=== PATIENT | female | born 1965 | race Two or more races ===

== ENCOUNTER 2023-06-18 01:23 | Inpatient (IN) | payer MEDICAID, OTHER ==
[2023-06-18] VITALS (62 sets, daily range): BP systolic 71–133; BP diastolic 38–85; PULSE 48–104; RESP 14–25; TEMP 99.9–103.3; O2SAT 77–100
[~2023-06-18] VITALS: Ht 165.1 cm; Wt 71.3 kg
[2023-06-18] MEDS ORDERED: PROPOFOL 100 ML IV ONE (01:42)
[2023-06-18] MEDS: PROPOFOL 100 ML IV SCH ×2 (01:45→20:04)
[2023-06-18] MEDS ORDERED: SUCCINYLCHOLINE CHLORIDE 20 MG/ML 10ML VIAL IV ONE (01:45)
[2023-06-18] MEDS ORDERED: ETOMIDATE (2MG/ML) 20ML VIAL IV ONE (01:45)
[2023-06-18 01:50] LABS: Basophils # (auto) 0.1 10 ^3/uL (0-0.2); Basophils % (auto) 0.7 % (0.0-2.0); Eosinophils # (auto) 0.1 10 ^3/uL (0-0.8); Eosinophils % (auto) 0.6 % (0.0-7.0); Hematocrit 36.1 % (36.0-46.0); Hemoglobin 11.2 g/dL (12.2-16.2); Lymphocytes # (auto) 5.9 10 ^3/uL (0.4-5.4); Lymphocytes % (auto) 43.2 % (10.0-50.0); Mean Corpuscular Hemoglobin 29.5 pg (28.0-32.0); Mean Corpuscular Volume 95.2 fL (80.0-100.0); Monocytes # (auto) 0.8 10 ^3/uL (0-1.3); Monocytes % (auto) 6.1 % (0.0-12.0); Neutrophils # (auto) 6.8 10 ^3/uL (1.6-8.6); Neutrophils % (auto) 49.4 % (37.0-80.0); Nucleated Red Blood Cells % 0.1 %; Red Blood Cells 3.79 10^6/uL (4.0-5.20); Red Cell Distribution Width 13.7 % (11.8-14.3); White Blood Cell 13.7 10^3/uL (4.4-10.8)
[2023-06-18 02:07] LABS: Alanine Aminotransferase 376 U/L (7-40); Albumin 3.5 g/dL (3.2-4.8); Alkaline Phosphatase 106 U/L (46-116); Anion Gap 14 (5-15); Aspartate Aminotransferase 429 U/L (13-40); BUN/Creatinine Ratio 8.5 (10.0-20.0); Bilirubin, Total 0.7 mg/dL (0.2-1.0); Blood Alcohol < 3.0 mg/dL (<10); Blood Urea Nitrogen 10 mg/dL (9-23); Calcium 8.1 mg/dL (8.7-10.4); Carbon Dioxide 17 mmol/L (20-30); Chloride 106 mmol/L (98-107); Glucose 312 mg/dL (74-106); Potassium 4.3 mmol/L (3.5-5.1); Sodium 137 mmol/L (136-145)
[2023-06-18 02:08] LABS: Total Protein 5.8 g/dL (5.7-8.2)
[2023-06-18] MEDS ORDERED: NOREPINEPHRINE 8 MG/250ML KIT 250 ML IV ONE (02:12)
[2023-06-18] MEDS: NOREPINEPHRINE 8 MG/250ML KIT 250 ML IV SCH ×3 (02:15→20:12)
[2023-06-18 02:23] LABS: Base Excess -11.6 mmol/L (-2.0-2.0)
[2023-06-18] MEDS ORDERED: NOREPINEPHRINE 8 MG/250ML KIT 250 ML IV SCH (02:30)
[2023-06-18] MEDS ORDERED: cefTRIAXone 1GM/50ML D5W 50 ML IV ONE (03:00)
[2023-06-18] MEDS ORDERED: AZITHROMYCIN 500MG/ 250ML 250 ML IV ONE (03:00)
[2023-06-18] MEDS ORDERED: fentaNYL Drip 2500mCg/250mlNS 250 ML IV ONE (03:29)
[2023-06-18] MEDS: fentaNYL Drip 2500mCg/250mlNS 250 ML IV SCH (03:30)
[2023-06-18 04:01] LABS: Urine Amorphous Crystal FEW /hpf (None Seen); Urine Bacteria FEW /hpf (None Seen); Urine Blood 3+ /uL (Negative); Urine Clarity HAZY (Clear); Urine Color Yellow (Yellow); Urine Mucus FEW (None Seen); Urine Protein, UAD 2+ (Negative); Urine Specific Gravity 1.019 (1.001-1.035); Urine WBC 16 /hpf (0 - 5); Urine WBC Clumps PRESENT /hpf (None Seen)
[2023-06-18 04:15] LABS: Amphetamine Screen, Urine Neg (NEGATIVE); Barbiturate Scree,Urine Neg (NEGATIVE); Benzodiazephine Screen, Urine Neg (NEGATIVE); Cannabinoid Screen, Urine Neg (NEGATIVE); Cocaine Screen, Urine Neg (NEGATIVE); Opiate Scree,Urine Neg (NEGATIVE); Phencyclidine Screen, Urine Neg (NEGATIVE)
[2023-06-18 04:25] LABS: COVID19 ANTIGEN SOFIA FIA NEGATIVE (NEGATIVE); Rapid Influenza A Negative (Negative); Rapid Influenza B Negative (Negative)
[2023-06-18] MEDS ORDERED: EPINEPHrine HCL 250 ML IV SCH (04:45)
[2023-06-18] MEDS ORDERED: ONDANSETRON HCL 4 MG/2 ML VIAL IV PRN (06:00)
[2023-06-18] MEDS ORDERED: ENOXAPARIN SOD 100 MG/1 ML SYRINGE SC ONE (06:00)
[2023-06-18] MEDS: SODIUM CHLORIDE 0.9% 1,000 ML IV SCH ×3 (06:00→22:27)
[2023-06-18] MEDS ORDERED: MORPHINE SULFATE INJ 2 MG/ml SYRG IV PRN ×2 (06:00→11:15)
[2023-06-18] MEDS ORDERED: NITROGLYCERIN 0.4 MG SL TAB SL PRN (06:00)
[2023-06-18] MEDS ORDERED: ENOXAPARIN SOD 40 MG/0.4 ML SYRINGE SC SCH (10:00)
[2023-06-18] MEDS ORDERED: ENOXAPARIN SOD 80 MG/0.8ML SYRINGE SC SCH (11:15)
[2023-06-18] MEDS ORDERED: ASPirin 325 MG TAB PO ONE (11:15)
[2023-06-18] MEDS ORDERED: SODIUM CHLORIDE 0.9% 1,000 ML IV SCH (12:15)
[2023-06-18] MEDS ORDERED: AMIODARONE BOLUS KIT 100 ML IV ONE (12:15)
[2023-06-18] MEDS ORDERED: AMIODARONE 450mg/250ml AE 250 ML IV SCH (12:30)
[2023-06-18] MEDS ORDERED: CLOPIDOGREL 300 MG TAB PO ONE (12:30)
[2023-06-18] MEDS ORDERED: SODIUM CHL 0.9% 50 ML ONE ×2 (12:43→12:45)
[2023-06-18] MEDS ORDERED: ANGIOMAX 250 MG VIAL IV ONE (12:43)
[2023-06-18] MEDS ORDERED: VERAPAMIL 2.5MG/ML INJ 2ML VIAL IV ONE (12:43)
[2023-06-18] MEDS ORDERED: HEPARIN SODIUM (PORCINE) 5000 UNITS/ML 1ML VIAL ONE (12:43)
[2023-06-18] MEDS ORDERED: LIDOCAINE 2%HCL (LOCAL ANESTH.) INJ 20ML MDV ONE (12:44)
[2023-06-18] MEDS: ALBUTEROL MEDNEB 2.5 mg/3ml NEB NEB SCH ×3 (12:44→22:12)
[2023-06-18] MEDS ORDERED: IODIXANOL 320MG/ML 100ML BTL IV ONE ×3 (12:44→14:21)
[2023-06-18] MEDS: IPRATROPIUM BROM 0.5 MG/2.5ML INH SOL NEB SCH ×4 (12:45→22:12)
[2023-06-18 12:58] LABS: Erythrocyte Sedimentation Rate 12 mm/hr (0-20)
[2023-06-18] MEDS ORDERED: EPINEPHrine HCL 1 MG/10 ML SYRG ONE (13:20)
[2023-06-18] MEDS ORDERED: ATROPINE SULF 1 MG/10ml SYR ONE (13:20)
[2023-06-18] MEDS ORDERED: fentaNYL CITRATE 100 MCG/2 ML VL ONE (14:00)
[2023-06-18] MEDS: PIPERACILLIN-TAZOB 3.375GM 100 ML IV SCH ×2 (14:00→22:28)
[2023-06-18] MEDS ORDERED: MIDAZOLAM HCL 2MG/2ML 2ml VIAL (1mg/ml) ONE (14:01)
[2023-06-18] MEDS ORDERED: OPTISON 3ml Vial for INJ IV ONE (17:10)
[2023-06-18] MEDS ORDERED: EPINEPHrine HCL 250 ML IV ONE (17:32)
[2023-06-18] MEDS: EPINEPHrine HCL 250 ML IV SCH (17:42)
[2023-06-18] MEDS: AMIODARONE 450mg/250ml AE 250 ML IV SCH (18:30)
[2023-06-19] VITALS (107 sets, daily range): BP systolic 86–166; BP diastolic 49–86; PULSE 57–118; RESP 8–20; TEMP 99.3–100.6; O2SAT 88–100
[2023-06-19] MEDS: AMIODARONE 450mg/250ml AE 250 ML IV SCH ×3 (00:19→21:07)
[2023-06-19] MEDS: IPRATROPIUM BROM 0.5 MG/2.5ML INH SOL NEB SCH ×4 (02:23→18:57)
[2023-06-19] MEDS: ALBUTEROL MEDNEB 2.5 mg/3ml NEB NEB SCH ×3 (02:23→18:57)
[2023-06-19 04:25] LABS: Basophils # (auto) 0 10 ^3/uL (0-0.2); Basophils % (auto) 0.3 % (0.0-2.0); Eosinophils # (auto) 0.1 10 ^3/uL (0-0.8); Eosinophils % (auto) 0.6 % (0.0-7.0); Hematocrit 31.3 % (36.0-46.0); Hemoglobin 10.5 g/dL (12.2-16.2); Lymphocytes # (auto) 2.6 10 ^3/uL (0.4-5.4); Lymphocytes % (auto) 19.9 % (10.0-50.0); Mean Corpuscular Hemoglobin 30.3 pg (28.0-32.0); Mean Corpuscular Hgb Conc. 33.5 g/dL (32.0-36.0); Mean Corpuscular Volume 90.5 fL (80.0-100.0); Monocytes # (auto) 1.2 10 ^3/uL (0-1.3); Monocytes % (auto) 9.4 % (0.0-12.0); Neutrophils # (auto) 9.1 10 ^3/uL (1.6-8.6); Neutrophils % (auto) 69.8 % (37.0-80.0); Red Blood Cells 3.46 10^6/uL (4.0-5.20); Red Cell Distribution Width 13.1 % (11.8-14.3)
[2023-06-19 04:39] LABS: Alanine Aminotransferase 336 U/L (7-40); Albumin 3.3 g/dL (3.2-4.8); Alkaline Phosphatase 99 U/L (46-116); Anion Gap 8 (5-15); Aspartate Aminotransferase 273 U/L (13-40); BUN/Creatinine Ratio 9.9 (10.0-20.0); Bilirubin, Total 1.3 mg/dL (0.2-1.0); Blood Urea Nitrogen 11 mg/dL (9-23); Calcium 7.8 mg/dL (8.7-10.4); Carbon Dioxide 22 mmol/L (20-30); Chloride 104 mmol/L (98-107); Glucose 170 mg/dL (74-106); Potassium 3.5 mmol/L (3.5-5.1); Sodium 134 mmol/L (136-145); Total Protein 5.8 g/dL (5.7-8.2)
[2023-06-19] MEDS: PIPERACILLIN-TAZOB 3.375GM 100 ML IV SCH ×3 (05:42→22:33)
[2023-06-19 08:47] LABS: Base Excess -6.3 mmol/L (-2.0-2.0)
[2023-06-19] MEDS ORDERED: cefTRIAXone 1GM/50ML D5W 50 ML IV SCH (09:00)
[2023-06-19] MEDS: AZITHROMYCIN 500MG/ 250ML 250 ML IV SCH ×2 (10:00→10:07)
[2023-06-19] MEDS: CLOPIDOGREL BISULFATE 75 MG TAB PO SCH (10:00)
[2023-06-19] MEDS ORDERED: METOCLOPRAMIDE HCL 5MG/ml INJ 2ml VIAL IV ONE (10:15)
[2023-06-19 11:23] LABS: Magnesium 1.8 mg/dL (1.6-2.6)
[2023-06-19] MEDS ORDERED: MAGNESIUM SULFATE 1GM/100ML 100 ML IV ONE (15:00)
[2023-06-19] MEDS: PROPOFOL 100 ML IV SCH (16:57)
[2023-06-19] MEDS: POTASSIUM CHL 20MEQ/100ML 100 ML IV SCH ×2 (17:00→17:04)
[2023-06-19] MEDS: fentaNYL Drip 2500mCg/250mlNS 250 ML IV SCH (17:03)
[2023-06-19] MEDS: EPINEPHrine HCL 250 ML IV SCH (17:15)
[2023-06-19] MEDS: SODIUM CHLORIDE 0.9% 1,000 ML IV SCH (22:00)
[2023-06-19] MEDS: AMIODARONE HCL 200 MG TAB GT SCH (22:33)
[2023-06-20] VITALS (105 sets, daily range): BP systolic 77–165; BP diastolic 41–85; PULSE 68–113; RESP 6–25; TEMP 97.7–102.2; O2SAT 90–100
[2023-06-20] MEDS: IPRATROPIUM BROM 0.5 MG/2.5ML INH SOL NEB SCH ×3 (00:21→19:04)
[2023-06-20] MEDS: ALBUTEROL MEDNEB 2.5 mg/3ml NEB NEB SCH ×3 (00:21→19:04)
[2023-06-20] MEDS: NOREPINEPHRINE 8 MG/250ML KIT 250 ML IV SCH (02:15)
[2023-06-20 04:13] LABS: Basophils # (auto) 0 10 ^3/uL (0-0.2); Basophils % (auto) 0.2 % (0.0-2.0); Eosinophils # (auto) 0.1 10 ^3/uL (0-0.8); Eosinophils % (auto) 0.5 % (0.0-7.0); Hematocrit 27.1 % (36.0-46.0); Hemoglobin 8.9 g/dL (12.2-16.2); Lymphocytes # (auto) 1.4 10 ^3/uL (0.4-5.4); Lymphocytes % (auto) 10.7 % (10.0-50.0); Mean Corpuscular Hemoglobin 29.3 pg (28.0-32.0); Mean Corpuscular Hgb Conc. 32.8 g/dL (32.0-36.0); Mean Corpuscular Volume 89.3 fL (80.0-100.0); Monocytes # (auto) 1.3 10 ^3/uL (0-1.3); Monocytes % (auto) 9.4 % (0.0-12.0); Neutrophils # (auto) 10.6 10 ^3/uL (1.6-8.6); Neutrophils % (auto) 79.2 % (37.0-80.0); Red Blood Cells 3.03 10^6/uL (4.0-5.20); Red Cell Distribution Width 13.1 % (11.8-14.3); White Blood Cell 13.4 10^3/uL (4.4-10.8)
[2023-06-20 04:22] LABS: Chloride 104 mmol/L (98-107); Potassium 3.8 mmol/L (3.5-5.1); Sodium 132 mmol/L (136-145)
[2023-06-20 04:23] LABS: Anion Gap 6 (5-15); Calcium 8.1 mg/dL (8.7-10.4); Carbon Dioxide 22 mmol/L (20-30)
[2023-06-20 04:28] LABS: Blood Urea Nitrogen 9 mg/dL (9-23); Glucose 138 mg/dL (74-106)
[2023-06-20 04:29] LABS: Magnesium 1.9 mg/dL (1.6-2.6)
[2023-06-20] MEDS: PIPERACILLIN-TAZOB 3.375GM 100 ML IV SCH ×3 (05:46→21:13)
[2023-06-20 08:18] LABS: Base Excess -4.5 mmol/L (-2.0-2.0)
[2023-06-20] MEDS ORDERED: POTASSIUM CHL 20MEQ/100ML 100 ML IV ONE (09:15)
[2023-06-20] MEDS: FUROSEMIDE 20 MG/2 ML VIAL IV SCH (09:56)
[2023-06-20] MEDS: MAGNESIUM OXIDE 400 MG TAB PO SCH (09:57)
[2023-06-20] MEDS: AMIODARONE HCL 200 MG TAB GT SCH ×2 (09:57→21:12)
[2023-06-20] MEDS: CLOPIDOGREL BISULFATE 75 MG TAB PO SCH (09:57)
[2023-06-20] MEDS: D5W/SOD CHLO 0.9% 1,000 ML IV SCH ×2 (10:04→22:35)
[2023-06-20] MEDS: EMPAGLIFLOZIN 10 MG TAB GT SCH (10:12)
[2023-06-20] MEDS: ONDANSETRON HCL 4 MG/2 ML VIAL IV PRN (11:03)
[2023-06-20] MEDS: METOCLOPRAMIDE HCL 5MG/ml INJ 2ml VIAL IV SCH ×2 (15:50→21:12)
[2023-06-20] MEDS: EPINEPHrine HCL 250 ML IV SCH (17:15)
[2023-06-20] MEDS: PROPOFOL 100 ML IV SCH (19:44)
[2023-06-20] MEDS ORDERED: ACETAMINOPHEN 325 MG TAB PO ONE (19:45)
[2023-06-20] MEDS: fentaNYL Drip 2500mCg/250mlNS 250 ML IV SCH (19:52)
[2023-06-21] VITALS (107 sets, daily range): BP systolic 88–180; BP diastolic 42–115; PULSE 78–108; RESP 10–25; TEMP 97.2–99.5; O2SAT 89–100
[2023-06-21] MEDS: ALBUTEROL MEDNEB 2.5 mg/3ml NEB NEB SCH ×4 (00:14→18:30)
[2023-06-21] MEDS: IPRATROPIUM BROM 0.5 MG/2.5ML INH SOL NEB SCH ×4 (00:15→18:30)
[2023-06-21] MEDS: NOREPINEPHRINE 8 MG/250ML KIT 250 ML IV SCH (02:15)
[2023-06-21 04:11] LABS: Basophils # (auto) 0.1 10 ^3/uL (0-0.2); Basophils % (auto) 0.6 % (0.0-2.0); Eosinophils # (auto) 0.1 10 ^3/uL (0-0.8); Eosinophils % (auto) 0.9 % (0.0-7.0); Hematocrit 27.3 % (36.0-46.0); Hemoglobin 8.9 g/dL (12.2-16.2); Lymphocytes # (auto) 1.7 10 ^3/uL (0.4-5.4); Lymphocytes % (auto) 13.7 % (10.0-50.0); Mean Corpuscular Hemoglobin 29.1 pg (28.0-32.0); Mean Corpuscular Hgb Conc. 32.5 g/dL (32.0-36.0); Mean Corpuscular Volume 89.5 fL (80.0-100.0); Monocytes # (auto) 1.4 10 ^3/uL (0-1.3); Monocytes % (auto) 10.9 % (0.0-12.0); Neutrophils # (auto) 9.3 10 ^3/uL (1.6-8.6); Neutrophils % (auto) 73.9 % (37.0-80.0); Nucleated Red Blood Cells % 0.1 %; Red Blood Cells 3.05 10^6/uL (4.0-5.20); White Blood Cell 12.6 10^3/uL (4.4-10.8)
[2023-06-21 04:39] LABS: Alanine Aminotransferase 195 U/L (7-40); Albumin 3.6 g/dL (3.2-4.8); Alkaline Phosphatase 91 U/L (46-116); Anion Gap 7 (5-15); Blood Urea Nitrogen 8 mg/dL (9-23); Calcium 8.4 mg/dL (8.7-10.4); Carbon Dioxide 25 mmol/L (20-30); Chloride 103 mmol/L (98-107); Glucose 118 mg/dL (74-106); Magnesium 1.8 mg/dL (1.6-2.6); Potassium 3.5 mmol/L (3.5-5.1); Sodium 135 mmol/L (136-145)
[2023-06-21 04:40] LABS: Aspartate Aminotransferase 89 U/L (13-40); Bilirubin, Total 0.9 mg/dL (0.2-1.0); Total Protein 6.1 g/dL (5.7-8.2)
[2023-06-21] MEDS: PROPOFOL 100 ML IV SCH ×2 (04:54→17:57)
[2023-06-21] MEDS: PIPERACILLIN-TAZOB 3.375GM 100 ML IV SCH ×3 (06:24→22:02)
[2023-06-21] MEDS: METOCLOPRAMIDE HCL 5MG/ml INJ 2ml VIAL IV SCH ×3 (06:24→22:03)
[2023-06-21] MEDS: EMPAGLIFLOZIN 10 MG TAB GT SCH (06:24)
[2023-06-21] MEDS ORDERED: Jevity 1.2 Cal/Fiber 1 Liter GT SCH (08:15)
[2023-06-21] MEDS: CLOPIDOGREL BISULFATE 75 MG TAB PO SCH (10:41)
[2023-06-21] MEDS: FUROSEMIDE 20 MG/2 ML VIAL IV SCH (10:41)
[2023-06-21] MEDS: POTASSIUM CHL 20MEQ/100ML 100 ML IV SCH ×2 (10:41→11:51)
[2023-06-21] MEDS: AMIODARONE HCL 200 MG TAB GT SCH ×2 (10:41→22:03)
[2023-06-21] MEDS: MAGNESIUM OXIDE 400 MG TAB PO SCH (10:41)
[2023-06-21] MEDS: AZITHROMYCIN 500MG/ 250ML 250 ML IV SCH (11:01)
[2023-06-21] MEDS: ONDANSETRON HCL 4 MG/2 ML VIAL IV PRN (11:31)
[2023-06-21] MEDS: D5W/SOD CHLO 0.9% 1,000 ML IV SCH (13:24)
[2023-06-21 15:55] LABS: Base Excess -0.9 mmol/L (-2.0-2.0)
[2023-06-21] MEDS: EPINEPHrine HCL 250 ML IV SCH (17:15)
[2023-06-21] MEDS: fentaNYL Drip 2500mCg/250mlNS 250 ML IV SCH (23:57)
[2023-06-22] VITALS (101 sets, daily range): BP systolic 69–156; BP diastolic 46–111; PULSE 68–124; RESP 8–40; TEMP 36; O2SAT 83–100
[2023-06-22] MEDS: ALBUTEROL MEDNEB 2.5 mg/3ml NEB NEB SCH ×4 (00:03→18:41)
[2023-06-22] MEDS: IPRATROPIUM BROM 0.5 MG/2.5ML INH SOL NEB SCH ×4 (00:03→18:41)
[2023-06-22] MEDS: NOREPINEPHRINE 8 MG/250ML KIT 250 ML IV SCH (02:15)
[2023-06-22 03:53] LABS: Chloride 106 mmol/L (98-107); Potassium 3.1 mmol/L (3.5-5.1); Sodium 140 mmol/L (136-145)
[2023-06-22 03:54] LABS: Anion Gap 6 (5-15); Calcium 8.2 mg/dL (8.5-10.1); Carbon Dioxide 28 mmol/L (20-30)
[2023-06-22 03:59] LABS: BUN/Creatinine Ratio 9.3 (10.0-20.0); Blood Urea Nitrogen 7 mg/dL (9-23); Glucose 115 mg/dL (74-106)
[2023-06-22 04:34] LABS: Basophils # (auto) 0 10 ^3/uL (0-0.2); Basophils % (auto) 0.2 % (0.0-2.0); Eosinophils # (auto) 0 10 ^3/uL (0-0.8); Eosinophils % (auto) 0.5 % (0.0-7.0); Hemoglobin 7.4 g/dL (12.2-16.2); Monocytes # (auto) 1.1 10 ^3/uL (0-1.3); Neutrophils # (auto) 7.2 10 ^3/uL (1.6-8.6); White Blood Cell 9.3 10^3/uL (4.4-10.8)
[2023-06-22 04:37] LABS: Hematocrit 21.8 % (36.0-46.0); Lymphocytes % (auto) 10.6 % (10.0-50.0); Mean Corpuscular Hemoglobin 30.3 pg (28.0-32.0); Mean Corpuscular Hgb Conc. 33.8 g/dL (32.0-36.0); Mean Corpuscular Volume 89.5 fL (80.0-100.0); Monocytes % (auto) 11.4 % (0.0-12.0); Neutrophils % (auto) 77.3 % (37.0-80.0); Red Blood Cells 2.43 10^6/uL (4.0-5.20); Red Cell Distribution Width 12.6 % (11.8-14.3)
[2023-06-22] MEDS: PROPOFOL 100 ML IV SCH ×3 (05:20→23:23)
[2023-06-22] MEDS: PIPERACILLIN-TAZOB 3.375GM 100 ML IV SCH ×3 (05:28→22:00)
[2023-06-22] MEDS: D5W/SOD CHLO 0.9% 1,000 ML IV SCH ×2 (05:28→22:13)
[2023-06-22] MEDS: METOCLOPRAMIDE HCL 5MG/ml INJ 2ml VIAL IV SCH ×3 (05:29→21:59)
[2023-06-22] MEDS: EMPAGLIFLOZIN 10 MG TAB GT SCH (07:00)
[2023-06-22 07:09] LABS: Base Excess 0.6 mmol/L (-2.0-2.0)
[2023-06-22] MEDS: AMIODARONE HCL 200 MG TAB GT SCH ×2 (09:18→22:00)
[2023-06-22] MEDS: MAGNESIUM OXIDE 400 MG TAB PO SCH (09:18)
[2023-06-22] MEDS: CLOPIDOGREL BISULFATE 75 MG TAB PO SCH (09:18)
[2023-06-22] MEDS: FUROSEMIDE 20 MG/2 ML VIAL IV SCH (10:46)
[2023-06-22] MEDS: AZITHROMYCIN 500MG/ 250ML 250 ML IV SCH (11:25)
[2023-06-22] MEDS: POTASSIUM CHL 20MEQ/100ML 100 ML IV SCH ×3 (12:20→15:38)
[2023-06-22 13:43] LABS: Hematocrit 24.6 % (36.0-46.0)
[2023-06-22] MEDS: EPINEPHrine HCL 250 ML IV SCH (17:15)
[2023-06-22 18:50] LABS: Hemoglobin 7.7 g/dL (12.2-16.2)
[2023-06-22 18:52] LABS: Hematocrit 23.1 % (36.0-46.0)
[2023-06-23] VITALS (108 sets, daily range): BP systolic 84–120; BP diastolic 44–72; PULSE 66–100; RESP 12–21; TEMP 98.1–99.5; O2SAT 91–100
[2023-06-23 00:09] LABS: Hemoglobin 7.2 g/dL (12.2-16.2)
[2023-06-23] MEDS: ALBUTEROL MEDNEB 2.5 mg/3ml NEB NEB SCH ×4 (00:09→18:22)
[2023-06-23] MEDS: IPRATROPIUM BROM 0.5 MG/2.5ML INH SOL NEB SCH ×4 (00:09→18:22)
[2023-06-23 00:10] LABS: Hematocrit 21.5 % (36.0-46.0)
[2023-06-23] MEDS: NOREPINEPHRINE 8 MG/250ML KIT 250 ML IV SCH (02:15)
[2023-06-23] MEDS: PROPOFOL 100 ML IV SCH ×4 (03:37→23:51)
[2023-06-23 04:21] LABS: Basophils # (auto) 0 10 ^3/uL (0-0.2); Eosinophils # (auto) 0.3 10 ^3/uL (0-0.8)
[2023-06-23 04:23] LABS: Basophils % (auto) 0.3 % (0.0-2.0); Eosinophils % (auto) 2.7 % (0.0-7.0); Hematocrit 22.5 % (36.0-46.0); Hemoglobin 7.6 g/dL (12.2-16.2); Lymphocytes # (auto) 2.1 10 ^3/uL (0.4-5.4); Lymphocytes % (auto) 22.7 % (10.0-50.0); Mean Corpuscular Hemoglobin 30.2 pg (28.0-32.0); Mean Corpuscular Hgb Conc. 33.7 g/dL (32.0-36.0); Mean Corpuscular Volume 89.7 fL (80.0-100.0); Monocytes % (auto) 11.3 % (0.0-12.0); Neutrophils # (auto) 5.8 10 ^3/uL (1.6-8.6); Nucleated Red Blood Cells % 0.1 %; Red Cell Distribution Width 12.9 % (11.8-14.3); White Blood Cell 9.2 10^3/uL (4.4-10.8)
[2023-06-23 04:36] LABS: Alanine Aminotransferase 110 U/L (7-40); Albumin 3.3 g/dL (3.2-4.8); Alkaline Phosphatase 70 U/L (46-116); Anion Gap 7 (5-15); Aspartate Aminotransferase 64 U/L (13-40); BUN/Creatinine Ratio 12.2 (10.0-20.0); Blood Urea Nitrogen 10 mg/dL (9-23); Calcium 8.5 mg/dL (8.7-10.4); Carbon Dioxide 30 mmol/L (20-30); Chloride 105 mmol/L (98-107); Glucose 101 mg/dL (74-106); Magnesium 1.7 mg/dL (1.6-2.6); Potassium 3.2 mmol/L (3.5-5.1); Sodium 142 mmol/L (136-145)
[2023-06-23 04:37] LABS: Bilirubin, Total 0.8 mg/dL (0.2-1.0); Total Protein 5.7 g/dL (5.7-8.2)
[2023-06-23] MEDS: PIPERACILLIN-TAZOB 3.375GM 100 ML IV SCH ×3 (06:04→22:26)
[2023-06-23] MEDS: EMPAGLIFLOZIN 10 MG TAB GT SCH (06:04)
[2023-06-23] MEDS: METOCLOPRAMIDE HCL 5MG/ml INJ 2ml VIAL IV SCH ×3 (06:04→22:26)
[2023-06-23] MEDS: D5W/SOD CHLO 0.9% 1,000 ML IV SCH ×2 (06:40→17:40)
[2023-06-23] MEDS: fentaNYL Drip 2500mCg/250mlNS 250 ML IV SCH ×2 (06:41→20:03)
[2023-06-23 07:15] LABS: Base Excess -0.1 mmol/L (-2.0-2.0)
[2023-06-23] MEDS: POTASSIUM CHL 20MEQ/100ML 100 ML IV SCH ×3 (09:43→13:30)
[2023-06-23] MEDS: MAGNESIUM OXIDE 400 MG TAB PO SCH (09:44)
[2023-06-23] MEDS: FUROSEMIDE 20 MG/2 ML VIAL IV SCH (09:44)
[2023-06-23] MEDS: AMIODARONE HCL 200 MG TAB GT SCH ×2 (09:44→22:26)
[2023-06-23] MEDS: AZITHROMYCIN 500MG/ 250ML 250 ML IV SCH (10:56)
[2023-06-23 14:40] LABS: Urine Bacteria NONE SEEN /hpf (None Seen); Urine Blood 2+ /uL (Negative); Urine Clarity Clear (Clear); Urine Color Yellow (Yellow); Urine Protein, UAD TRACE (Negative); Urine Specific Gravity 1.012 (1.001-1.035); Urine Urobilinogen Normal (Negative); Urine WBC 1 /hpf (0 - 5); Urine pH 5.5 (5.0-8.0)
[2023-06-23] MEDS: EPINEPHrine HCL 250 ML IV SCH (16:49)
[2023-06-24] VITALS (109 sets, daily range): BP systolic 81–141; BP diastolic 19–84; PULSE 59–96; RESP 8–23; TEMP 97–98.5; O2SAT 87–100
[2023-06-24] MEDS: ALBUTEROL MEDNEB 2.5 mg/3ml NEB NEB SCH ×4 (00:17→18:25)
[2023-06-24] MEDS: IPRATROPIUM BROM 0.5 MG/2.5ML INH SOL NEB SCH ×4 (00:17→18:25)
[2023-06-24] MEDS: NOREPINEPHRINE 8 MG/250ML KIT 250 ML IV SCH ×2 (02:15→12:51)
[2023-06-24 04:18] LABS: Basophils # (auto) 0 10 ^3/uL (0-0.2); Basophils % (auto) 0.4 % (0.0-2.0); Eosinophils # (auto) 0.3 10 ^3/uL (0-0.8); Hemoglobin 7.5 g/dL (12.2-16.2); Lymphocytes # (auto) 1.9 10 ^3/uL (0.4-5.4)
[2023-06-24 04:20] LABS: Eosinophils % (auto) 4.3 % (0.0-7.0); Hematocrit 22.9 % (36.0-46.0); Lymphocytes % (auto) 23.9 % (10.0-50.0); Mean Corpuscular Hemoglobin 29.7 pg (28.0-32.0); Mean Corpuscular Hgb Conc. 32.7 g/dL (32.0-36.0); Mean Corpuscular Volume 90.8 fL (80.0-100.0); Monocytes # (auto) 0.9 10 ^3/uL (0-1.3); Monocytes % (auto) 11.3 % (0.0-12.0); Neutrophils # (auto) 4.8 10 ^3/uL (1.6-8.6); Neutrophils % (auto) 60.1 % (37.0-80.0); Nucleated Red Blood Cells % 0.6 %; Red Blood Cells 2.53 10^6/uL (4.0-5.20); Red Cell Distribution Width 13.3 % (11.8-14.3)
[2023-06-24 04:35] LABS: Alanine Aminotransferase 86 U/L (7-40); Albumin 3.3 g/dL (3.2-4.8); Alkaline Phosphatase 77 U/L (46-116); Anion Gap 7 (5-15); Aspartate Aminotransferase 44 U/L (13-40); Blood Urea Nitrogen 8 mg/dL (9-23); Calcium 8.4 mg/dL (8.7-10.4); Carbon Dioxide 28 mmol/L (20-30); Chloride 106 mmol/L (98-107); Glucose 92 mg/dL (74-106); Potassium 3.5 mmol/L (3.5-5.1); Sodium 141 mmol/L (136-145)
[2023-06-24 04:36] LABS: Bilirubin, Total 0.9 mg/dL (0.2-1.0); Total Protein 5.8 g/dL (5.7-8.2)
[2023-06-24] MEDS: EMPAGLIFLOZIN 10 MG TAB GT SCH (06:09)
[2023-06-24] MEDS: PIPERACILLIN-TAZOB 3.375GM 100 ML IV SCH ×3 (06:09→21:17)
[2023-06-24] MEDS: METOCLOPRAMIDE HCL 5MG/ml INJ 2ml VIAL IV SCH ×3 (06:09→21:17)
[2023-06-24] MEDS: PROPOFOL 100 ML IV SCH ×2 (08:37→20:36)
[2023-06-24] MEDS: D5W/SOD CHLO 0.9% 1,000 ML IV SCH (08:38)
[2023-06-24 08:50] LABS: Base Excess -2.5 mmol/L (-2.0-2.0)
[2023-06-24] MEDS: AZITHROMYCIN 500MG/ 250ML 250 ML IV SCH (10:33)
[2023-06-24] MEDS: AMIODARONE HCL 200 MG TAB GT SCH ×2 (10:33→21:20)
[2023-06-24] MEDS: FUROSEMIDE 20 MG/2 ML VIAL IV SCH (10:34)
[2023-06-24] MEDS: POTASSIUM CHL 20MEQ/100ML 100 ML IV SCH ×2 (10:35→11:52)
[2023-06-24] MEDS: MAGNESIUM SULFATE 1GM/100ML 100 ML IV SCH ×2 (10:35→11:45)
[2023-06-24] MEDS: MAGNESIUM OXIDE 400 MG TAB PO SCH (10:52)
[2023-06-24] MEDS ORDERED: FUROSEMIDE 20 MG/2 ML VIAL IV ONE ×2 (12:30→12:45)
[2023-06-24] MEDS: fentaNYL Drip 2500mCg/250mlNS 250 ML IV SCH (13:14)
[2023-06-24] MEDS: EPINEPHrine HCL 250 ML IV SCH (17:15)
[2023-06-25] VITALS (105 sets, daily range): BP systolic 84–149; BP diastolic 36–96; PULSE 33–113; RESP 8–22; TEMP 98.5–100; O2SAT 90–100
[2023-06-25] MEDS: PROPOFOL 100 ML IV SCH ×4 (00:24→23:46)
[2023-06-25] MEDS: D5W/SOD CHLO 0.9% 1,000 ML IV SCH (00:27)
[2023-06-25] MEDS: IPRATROPIUM BROM 0.5 MG/2.5ML INH SOL NEB SCH ×4 (00:32→18:35)
[2023-06-25] MEDS: ALBUTEROL MEDNEB 2.5 mg/3ml NEB NEB SCH ×4 (00:32→18:35)
[2023-06-25 04:16] LABS: Basophils # (auto) 0 10 ^3/uL (0-0.2); Eosinophils # (auto) 0.3 10 ^3/uL (0-0.8); Monocytes # (auto) 0.8 10 ^3/uL (0-1.3); Nucleated Red Blood Cells % 0.2 %; Red Blood Cells 2.39 10^6/uL (4.0-5.20)
[2023-06-25 04:17] LABS: Basophils % (auto) 0.5 % (0.0-2.0); Eosinophils % (auto) 4.3 % (0.0-7.0); Hematocrit 21.5 % (36.0-46.0); Hemoglobin 7.3 g/dL (12.2-16.2); Lymphocytes # (auto) 1.9 10 ^3/uL (0.4-5.4); Mean Corpuscular Hemoglobin 30.4 pg (28.0-32.0); Mean Corpuscular Hgb Conc. 33.8 g/dL (32.0-36.0); Monocytes % (auto) 11.7 % (0.0-12.0); Neutrophils # (auto) 3.8 10 ^3/uL (1.6-8.6); Neutrophils % (auto) 55.5 % (37.0-80.0); Red Cell Distribution Width 13.3 % (11.8-14.3); White Blood Cell 6.9 10^3/uL (4.4-10.8)
[2023-06-25 04:36] LABS: Alanine Aminotransferase 61 U/L (7-40); Albumin 3.1 g/dL (3.2-4.8); Alkaline Phosphatase 78 U/L (46-116); Anion Gap 7 (5-15); Aspartate Aminotransferase 32 U/L (13-40); BUN/Creatinine Ratio 9.3 (10.0-20.0); Blood Urea Nitrogen 8 mg/dL (9-23); Calcium 8.2 mg/dL (8.7-10.4); Carbon Dioxide 30 mmol/L (20-30); Chloride 104 mmol/L (98-107); Glucose 97 mg/dL (74-106); Potassium 3.1 mmol/L (3.5-5.1); Sodium 141 mmol/L (136-145); Total Protein 5.5 g/dL (5.7-8.2)
[2023-06-25] MEDS: EMPAGLIFLOZIN 10 MG TAB GT SCH (05:56)
[2023-06-25] MEDS: METOCLOPRAMIDE HCL 5MG/ml INJ 2ml VIAL IV SCH ×3 (05:56→23:00)
[2023-06-25] MEDS: PIPERACILLIN-TAZOB 3.375GM 100 ML IV SCH (05:56)
[2023-06-25] MEDS: FUROSEMIDE 20 MG/2 ML VIAL IV SCH ×2 (09:00→23:00)
[2023-06-25] MEDS: POTASSIUM CHL 20MEQ/100ML 100 ML IV SCH ×4 (09:12→20:54)
[2023-06-25] MEDS ORDERED: ATROPINE SULF 1 MG/10ml SYR IV ONE (09:30)
[2023-06-25] MEDS: fentaNYL Drip 2500mCg/250mlNS 250 ML IV SCH (09:54)
[2023-06-25] MEDS ORDERED: POTASSIUM CHL 20MEQ/100ML 100 ML IV ONE (10:00)
[2023-06-25] MEDS ORDERED: MAGNESIUM SULFATE 1GM/100ML 100 ML IV SCH (10:00)
[2023-06-25] MEDS ORDERED: MAGNESIUM SULFATE 1GM/100ML 100 ML IV ONE (10:00)
[2023-06-25] MEDS ORDERED: FUROSEMIDE 20 MG/2 ML VIAL IV SCH (10:00)
[2023-06-25] MEDS: MAGNESIUM SULFATE 1GM/100ML 100 ML IV SCH ×4 (11:13→16:15)
[2023-06-25] MEDS: ENOXAPARIN SOD 40 MG/0.4 ML SYRINGE SC SCH (12:00)
[2023-06-25] MEDS: AMIODARONE HCL 200 MG TAB GT SCH ×2 (12:00→22:00)
[2023-06-25] MEDS: MAGNESIUM OXIDE 400 MG TAB PO SCH (12:51)
[2023-06-25] MEDS ORDERED: PANTOPRAZOLE 40 MG/10 ML VIAL INJ IV ONE (13:15)
[2023-06-25] MEDS: ACETAMINOPHEN 650 mg PER 20.3 mL UD GT PRN (13:20)
[2023-06-25] MEDS: NOREPINEPHRINE 8 MG/250ML KIT 250 ML IV SCH (13:38)
[2023-06-25] MEDS ORDERED: ATROPINE SULF 1 MG/10ml SYR IM ONE (13:59)
[2023-06-25 14:52] LABS: Urine Bacteria FEW /hpf (None Seen); Urine Blood 1+ /uL (Negative); Urine Clarity Clear (Clear); Urine Color Yellow (Yellow); Urine Mucus FEW (None Seen); Urine Protein, UAD Negative (Negative); Urine Specific Gravity 1.012 (1.001-1.035); Urine Urobilinogen Normal (Negative); Urine WBC 1 /hpf (0 - 5)
[2023-06-25] MEDS: EPINEPHrine HCL 250 ML IV SCH (17:15)
[2023-06-25 18:32] LABS: Alanine Aminotransferase 57 U/L (7-40); Albumin 3.2 g/dL (3.2-4.8); Alkaline Phosphatase 81 U/L (46-116); Anion Gap 7 (5-15); Aspartate Aminotransferase 30 U/L (13-40); Blood Urea Nitrogen 7 mg/dL (9-23); Calcium 8.3 mg/dL (8.7-10.4); Carbon Dioxide 31 mmol/L (20-30); Chloride 101 mmol/L (98-107); Glucose 111 mg/dL (74-106); Potassium 3.1 mmol/L (3.5-5.1); Sodium 139 mmol/L (136-145)
[2023-06-25 18:33] LABS: Bilirubin, Total 1.2 mg/dL (0.2-1.0); Total Protein 5.8 g/dL (5.7-8.2)
[2023-06-25] MEDS ORDERED: POTASSIUM CHL 20MEQ/100ML 200 ML IV ONE (18:57)
[2023-06-25] MEDS: PANTOPRAZOLE 40 MG/10 ML VIAL INJ IV SCH (23:00)
[2023-06-26] VITALS (108 sets, daily range): BP systolic 76–137; BP diastolic 33–72; PULSE 53–112; RESP 10–25; TEMP 98.6–99.5; O2SAT 90–100
[2023-06-26] MEDS: IPRATROPIUM BROM 0.5 MG/2.5ML INH SOL NEB SCH ×4 (00:43→18:11)
[2023-06-26] MEDS: ALBUTEROL MEDNEB 2.5 mg/3ml NEB NEB SCH ×4 (00:43→18:11)
[2023-06-26 01:11] LABS: Chloride 104 mmol/L (98-107); Potassium 3.7 mmol/L (3.5-5.1); Sodium 139 mmol/L (136-145)
[2023-06-26 01:12] LABS: Anion Gap 6 (5-15); Calcium 8.1 mg/dL (8.7-10.4); Carbon Dioxide 29 mmol/L (20-30)
[2023-06-26 01:17] LABS: BUN/Creatinine Ratio 8.6 (10.0-20.0); Blood Urea Nitrogen 7 mg/dL (9-23); Glucose 93 mg/dL (74-106)
[2023-06-26] MEDS: PROPOFOL 100 ML IV SCH ×4 (05:51→19:06)
[2023-06-26] MEDS: METOCLOPRAMIDE HCL 5MG/ml INJ 2ml VIAL IV SCH ×3 (06:18→22:29)
[2023-06-26] MEDS: EMPAGLIFLOZIN 10 MG TAB GT SCH (06:19)
[2023-06-26] MEDS ORDERED: POTASSIUM CHL 20MEQ/100ML 100 ML IV ONE ×2 (09:45→23:15)
[2023-06-26 10:08] LABS: Basophils # (auto) 0.1 10 ^3/uL (0-0.2); Eosinophils # (auto) 0.3 10 ^3/uL (0-0.8); Lymphocytes # (auto) 1.9 10 ^3/uL (0.4-5.4); Nucleated Red Blood Cells % 0.2 %
[2023-06-26 10:10] LABS: Alanine Aminotransferase 57 U/L (7-40); Albumin 3.4 g/dL (3.2-4.8); Alkaline Phosphatase 84 U/L (46-116); Anion Gap 7 (5-15); Aspartate Aminotransferase 37 U/L (13-40); BUN/Creatinine Ratio 12.3 (10.0-20.0); Basophils % (auto) 0.9 % (0.0-2.0); Blood Urea Nitrogen 9 mg/dL (9-23); Calcium 8.6 mg/dL (8.5-10.1); Carbon Dioxide 30 mmol/L (20-30); Chloride 102 mmol/L (98-107); Eosinophils % (auto) 3.4 % (0.0-7.0); Glucose 79 mg/dL (74-106); Hemoglobin 7.9 g/dL (12.2-16.2); Lymphocytes % (auto) 19.2 % (10.0-50.0); Mean Corpuscular Hemoglobin 29.8 pg (28.0-32.0); Mean Corpuscular Hgb Conc. 33.1 g/dL (32.0-36.0); Monocytes # (auto) 0.7 10 ^3/uL (0-1.3); Monocytes % (auto) 7.6 % (0.0-12.0); Neutrophils # (auto) 6.7 10 ^3/uL (1.6-8.6); Neutrophils % (auto) 68.9 % (37.0-80.0); Potassium 3.5 mmol/L (3.5-5.1); Red Blood Cells 2.66 10^6/uL (4.0-5.20); Red Cell Distribution Width 13.4 % (11.8-14.3); Sodium 139 mmol/L (136-145); White Blood Cell 9.8 10^3/uL (4.4-10.8)
[2023-06-26 10:11] LABS: Bilirubin, Total 0.9 mg/dL (0.2-1.0); Total Protein 6.2 g/dL (5.7-8.2)
[2023-06-26] MEDS ORDERED: MAGNESIUM SULFATE 1GM/100ML 100 ML IV ONE (13:00)
[2023-06-26] MEDS: PANTOPRAZOLE 40 MG/10 ML VIAL INJ IV SCH ×2 (13:09→22:28)
[2023-06-26] MEDS: MAGNESIUM OXIDE 400 MG TAB PO SCH (13:10)
[2023-06-26] MEDS: ENOXAPARIN SOD 40 MG/0.4 ML SYRINGE SC SCH (13:10)
[2023-06-26] MEDS: SODIUM FERR GLUC 62.5MG/5ML 125 MG in SODIUM CHL 0.9% 100 ML IV SCH (13:17)
[2023-06-26] MEDS: POTASSIUM CHL 20MEQ/100ML 100 ML IV SCH ×3 (13:34→17:41)
[2023-06-26 13:45] LABS: INR 1.02 (0.9-1.15); Prothrombin Time 10.7 sec (9.3-11.8)
[2023-06-26] MEDS: MAGNESIUM SULFATE 1GM/100ML 100 ML IV SCH ×2 (14:42→16:13)
[2023-06-26] MEDS: FUROSEMIDE 20 MG/2 ML VIAL IV SCH (15:32)
[2023-06-26] MEDS: EPINEPHrine HCL 250 ML IV SCH (17:15)
[2023-06-26] MEDS ORDERED: LIDOCAINE 1% (LOCAL ANESTH.) PF 5ml SDV ID ONE (17:15)
[2023-06-26 21:53] LABS: Chloride 101 mmol/L (98-107); Potassium 3.7 mmol/L (3.5-5.1); Sodium 140 mmol/L (136-145)
[2023-06-26 21:54] LABS: Anion Gap 9 (5-15); Calcium 8.8 mg/dL (8.5-10.1); Carbon Dioxide 30 mmol/L (20-30)
[2023-06-26 21:59] LABS: BUN/Creatinine Ratio 9.5 (10.0-20.0); Blood Urea Nitrogen 8 mg/dL (9-23); Glucose 83 mg/dL (74-106)
[2023-06-26] MEDS: SODIUM CHLOR 0.9% PF (SALINE LOCK) 10ML VIAL/SYR IV SCH (22:28)
[2023-06-26] MEDS: fentaNYL Drip 2500mCg/250mlNS 250 ML IV SCH (23:21)
[2023-06-27] VITALS (102 sets, daily range): BP systolic 76–153; BP diastolic 39–85; PULSE 61–136; RESP 12–35; TEMP 98.2–99; O2SAT 85–100
[2023-06-27] MEDS: ALBUTEROL MEDNEB 2.5 mg/3ml NEB NEB SCH ×4 (00:05→18:20)
[2023-06-27] MEDS: IPRATROPIUM BROM 0.5 MG/2.5ML INH SOL NEB SCH ×4 (00:05→18:20)
[2023-06-27] MEDS: PROPOFOL 100 ML IV SCH ×3 (00:37→08:35)
[2023-06-27] MEDS: FUROSEMIDE 20 MG/2 ML VIAL IV SCH ×3 (01:03→18:22)
[2023-06-27] MEDS: NOREPINEPHRINE 8 MG/250ML KIT 250 ML IV SCH (01:59)
[2023-06-27 06:23] LABS: Basophils # (auto) 0.1 10 ^3/uL (0-0.2); Basophils % (auto) 1.2 % (0.0-2.0); Eosinophils # (auto) 0.3 10 ^3/uL (0-0.8); Eosinophils % (auto) 3.9 % (0.0-7.0); Hematocrit 26.2 % (36.0-46.0); Hemoglobin 8.8 g/dL (12.2-16.2); Lymphocytes # (auto) 1.8 10 ^3/uL (0.4-5.4); Lymphocytes % (auto) 23.4 % (10.0-50.0); Mean Corpuscular Hemoglobin 30.3 pg (28.0-32.0); Mean Corpuscular Hgb Conc. 33.6 g/dL (32.0-36.0); Mean Corpuscular Volume 90.3 fL (80.0-100.0); Monocytes # (auto) 0.6 10 ^3/uL (0-1.3); Monocytes % (auto) 8.4 % (0.0-12.0); Neutrophils # (auto) 4.8 10 ^3/uL (1.6-8.6); Neutrophils % (auto) 63.1 % (37.0-80.0); Nucleated Red Blood Cells % 0.3 %; Red Cell Distribution Width 13.7 % (11.8-14.3); White Blood Cell 7.6 10^3/uL (4.4-10.8)
[2023-06-27 06:26] LABS: Alanine Aminotransferase 51 U/L (7-40); Albumin 3.7 g/dL (3.2-4.8); Alkaline Phosphatase 94 U/L (46-116); Anion Gap 9 (5-15); Aspartate Aminotransferase 32 U/L (13-40); BUN/Creatinine Ratio 8.1 (10.0-20.0); Blood Urea Nitrogen 7 mg/dL (9-23); Carbon Dioxide 30 mmol/L (20-30); Chloride 100 mmol/L (98-107); Glucose 87 mg/dL (74-106); Potassium 3.6 mmol/L (3.5-5.1); Sodium 139 mmol/L (136-145)
[2023-06-27 06:27] LABS: Total Protein 6.8 g/dL (5.7-8.2)
[2023-06-27] MEDS: METOCLOPRAMIDE HCL 5MG/ml INJ 2ml VIAL IV SCH ×3 (06:46→23:09)
[2023-06-27] MEDS: EMPAGLIFLOZIN 10 MG TAB GT SCH (06:55)
[2023-06-27 07:17] LABS: Creatine Kinase IFCC 190 U/L (34-145)
[2023-06-27 08:26] LABS: Base Excess 5.8 mmol/L (-2.0-2.0)
[2023-06-27] MEDS ORDERED: MAGNESIUM SULFATE 1GM/100ML 100 ML IV ONE (09:15)
[2023-06-27] MEDS ORDERED: POTASSIUM CHL 20MEQ/100ML 100 ML IV ONE (09:15)
[2023-06-27] MEDS ORDERED: DOCUSATE SOD 100 MG CAP PO PRN (10:00)
[2023-06-27] MEDS: LACTULOSE 20Gm/30ML SOLN PO SCH ×2 (10:46→22:00)
[2023-06-27] MEDS: PANTOPRAZOLE 40 MG/10 ML VIAL INJ IV SCH ×2 (10:46→23:09)
[2023-06-27] MEDS: MAGNESIUM OXIDE 400 MG TAB PO SCH (10:46)
[2023-06-27] MEDS: ENOXAPARIN SOD 40 MG/0.4 ML SYRINGE SC SCH (10:46)
[2023-06-27] MEDS: SODIUM CHLOR 0.9% PF (SALINE LOCK) 10ML VIAL/SYR IV SCH ×2 (10:47→23:09)
[2023-06-27 12:35] LABS: Base Excess 5.3 mmol/L (-2.0-2.0)
[2023-06-27] MEDS: SODIUM FERR GLUC 62.5MG/5ML 125 MG in SODIUM CHL 0.9% 100 ML IV SCH (13:33)
[2023-06-27 15:25] LABS: Chloride 100 mmol/L (98-107); Potassium 4.2 mmol/L (3.5-5.1); Sodium 141 mmol/L (136-145)
[2023-06-27 15:26] LABS: Anion Gap 8 (5-15); Carbon Dioxide 33 mmol/L (20-30)
[2023-06-27 15:27] LABS: Calcium 8.9 mg/dL (8.5-10.1)
[2023-06-27 15:31] LABS: Glucose 101 mg/dL (74-106)
[2023-06-27 15:32] LABS: BUN/Creatinine Ratio 10.5 (10.0-20.0); Blood Urea Nitrogen 10 mg/dL (9-23)
[2023-06-27] MEDS: ACETAMINOPHEN 650 mg PER 20.3 mL UD GT PRN (18:20)
[2023-06-27] MEDS ORDERED: ETOMIDATE (2MG/ML) 20ML VIAL IV ONE ×2 (20:29→21:15)
[2023-06-27] MEDS ORDERED: ROCURONIUM 10MG/ML 10ML VIAL IV ONE ×2 (20:30→21:15)
[2023-06-27] MEDS ORDERED: MIDAZOLAM DRIP 50 mg/50mL 50 ML IV ONE (20:34)
[2023-06-27] MEDS ORDERED: fentaNYL Drip 2500mCg/250mlNS 250 ML IV ONE (20:35)
[2023-06-27] MEDS ORDERED: AMIODARONE BOLUS KIT 100 ML IV ONE ×2 (20:45→20:46)
[2023-06-27] MEDS ORDERED: MIDAZOLAM DRIP 50 mg/50mL 50 ML IV SCH (20:45)
[2023-06-27] MEDS ORDERED: fentaNYL Drip 2500mCg/250mlNS 250 ML IV SCH (20:45)
[2023-06-27] MEDS ORDERED: AMIODARONE 450mg/250ml AE 250 ML IV ONE (20:46)
[2023-06-27] MEDS ORDERED: AMIODARONE 450mg/250ml AE 250 ML IV SCH (21:00)
[2023-06-27] MEDS: MIDAZOLAM DRIP 50 mg/50mL 50 ML IV SCH (21:15)
[2023-06-27] MEDS: fentaNYL Drip 2500mCg/250mlNS 250 ML IV SCH (21:49)
[2023-06-27] MEDS ORDERED: AMIODARONE HCL 200 MG TAB PO SCH (22:00)
[2023-06-27 22:07] LABS: Base Excess 0.7 mmol/L (-2.0-2.0)
[2023-06-27 22:34] LABS: Chloride 100 mmol/L (98-107); Potassium 3.3 mmol/L (3.5-5.1); Sodium 140 mmol/L (136-145)
[2023-06-27 22:35] LABS: Anion Gap 12 (5-15); Calcium 9.1 mg/dL (8.5-10.1); Carbon Dioxide 28 mmol/L (20-30)
[2023-06-27 22:40] LABS: BUN/Creatinine Ratio 9.1 (10.0-20.0); Blood Urea Nitrogen 9 mg/dL (9-23); Glucose 148 mg/dL (74-106)
[2023-06-27] MEDS: ATORVASTATIN 20 MG TAB PO SCH (23:10)
[2023-06-27] MEDS: POTASSIUM CHL 20MEQ/100ML 100 ML IV SCH (23:36)
[2023-06-28] VITALS (107 sets, daily range): BP systolic 89–115; BP diastolic 45–74; PULSE 79–121; RESP 11–21; TEMP 98.4–101; O2SAT 93–100
[2023-06-28] MEDS: IPRATROPIUM BROM 0.5 MG/2.5ML INH SOL NEB SCH ×4 (00:18→18:50)
[2023-06-28] MEDS: POTASSIUM CHL 20MEQ/100ML 100 ML IV SCH ×5 (01:14→22:00)
[2023-06-28] MEDS: NOREPINEPHRINE 8 MG/250ML KIT 250 ML IV SCH ×2 (01:53→21:33)
[2023-06-28] MEDS: MIDAZOLAM DRIP 50 mg/50mL 50 ML IV SCH ×4 (02:17→21:13)
[2023-06-28 04:05] LABS: Basophils # (auto) 0 10 ^3/uL (0-0.2); Basophils % (auto) 0.2 % (0.0-2.0); Eosinophils # (auto) 0.1 10 ^3/uL (0-0.8); Eosinophils % (auto) 0.8 % (0.0-7.0); Hematocrit 29.1 % (36.0-46.0); Hemoglobin 9.3 g/dL (12.2-16.2); Lymphocytes # (auto) 1.8 10 ^3/uL (0.4-5.4); Lymphocytes % (auto) 11.1 % (10.0-50.0); Mean Corpuscular Hemoglobin 29.1 pg (28.0-32.0); Mean Corpuscular Hgb Conc. 32.2 g/dL (32.0-36.0); Mean Corpuscular Volume 90.3 fL (80.0-100.0); Monocytes % (auto) 6.2 % (0.0-12.0); Neutrophils # (auto) 13.3 10 ^3/uL (1.6-8.6); Neutrophils % (auto) 81.7 % (37.0-80.0); Nucleated Red Blood Cells % 0.1 %; Red Blood Cells 3.22 10^6/uL (4.0-5.20); Red Cell Distribution Width 13.7 % (11.8-14.3); White Blood Cell 16.3 10^3/uL (4.4-10.8)
[2023-06-28 04:25] LABS: Alanine Aminotransferase 52 U/L (7-40); Albumin 3.8 g/dL (3.2-4.8); Alkaline Phosphatase 99 U/L (46-116); Aspartate Aminotransferase 42 U/L (13-40); Calcium 9.1 mg/dL (8.7-10.4); Carbon Dioxide 29 mmol/L (20-30); Glucose 90 mg/dL (74-106)
[2023-06-28 04:30] LABS: Chloride 101 mmol/L (98-107); Potassium 3.9 mmol/L (3.5-5.1); Sodium 139 mmol/L (136-145)
[2023-06-28 04:34] LABS: Anion Gap 10 (5-15)
[2023-06-28 04:45] LABS: BUN/Creatinine Ratio 12.5 (10.0-20.0); Blood Urea Nitrogen 12 mg/dL (9-23); Magnesium 2.1 mg/dL (1.6-2.6)
[2023-06-28 04:47] LABS: Bilirubin, Total 1.2 mg/dL (0.2-1.0)
[2023-06-28] MEDS: FUROSEMIDE 20 MG/2 ML VIAL IV SCH ×2 (05:48→17:45)
[2023-06-28] MEDS: EMPAGLIFLOZIN 10 MG TAB PO SCH (05:48)
[2023-06-28] MEDS: METOCLOPRAMIDE HCL 5MG/ml INJ 2ml VIAL IV SCH ×3 (05:49→22:00)
[2023-06-28] MEDS: ALBUTEROL MEDNEB 2.5 mg/3ml NEB NEB SCH ×3 (06:22→18:50)
[2023-06-28 08:59] LABS: Base Excess 5.1 mmol/L (-2.0-2.0)
[2023-06-28] MEDS ORDERED: MAGNESIUM SULFATE 1GM/100ML 100 ML IV ONE (09:45)
[2023-06-28] MEDS: LACTULOSE 20Gm/30ML SOLN PO SCH ×2 (10:00→22:01)
[2023-06-28] MEDS: ENOXAPARIN SOD 40 MG/0.4 ML SYRINGE SC SCH (10:18)
[2023-06-28] MEDS: MAGNESIUM OXIDE 400 MG TAB PO SCH (10:18)
[2023-06-28] MEDS: SODIUM CHLOR 0.9% PF (SALINE LOCK) 10ML VIAL/SYR IV SCH ×2 (10:35→22:01)
[2023-06-28] MEDS: PANTOPRAZOLE 40 MG/10 ML VIAL INJ IV SCH ×2 (10:38→22:00)
[2023-06-28 14:49] LABS: Potassium 3.8 mmol/L (3.5-5.1)
[2023-06-28] MEDS ORDERED: AMIODARONE 450mg/250ml AE 250 ML IV ONE (14:55)
[2023-06-28 14:56] LABS: Magnesium 2.3 mg/dL (1.6-2.6)
[2023-06-28] MEDS ORDERED: AMIODARONE 450mg/250ml AE 250 ML IV SCH (15:15)
[2023-06-28] MEDS: ACETAMINOPHEN 650 mg PER 20.3 mL UD GT PRN (15:57)
[2023-06-28] MEDS ORDERED: POTASSIUM CHL 20MEQ/100ML 100 ML IV SCH (16:15)
[2023-06-28] MEDS: SODIUM FERR GLUC 62.5MG/5ML 125 MG in SODIUM CHL 0.9% 100 ML IV SCH (17:41)
[2023-06-28] MEDS: fentaNYL Drip 2500mCg/250mlNS 250 ML IV SCH (17:49)
[2023-06-28] MEDS: AMIODARONE 450mg/250ml AE 250 ML IV SCH (21:13)
[2023-06-28] MEDS: ATORVASTATIN 20 MG TAB PO SCH (22:01)
[2023-06-29] VITALS (109 sets, daily range): BP systolic 85–125; BP diastolic 49–73; PULSE 69–103; RESP 12–22; TEMP 98.3–102; O2SAT 77–99
[2023-06-29] MEDS: IPRATROPIUM BROM 0.5 MG/2.5ML INH SOL NEB SCH ×4 (00:21→18:42)
[2023-06-29] MEDS: ALBUTEROL MEDNEB 2.5 mg/3ml NEB NEB SCH ×4 (00:21→18:42)
[2023-06-29] MEDS: MIDAZOLAM DRIP 50 mg/50mL 50 ML IV SCH ×7 (00:34→20:53)
[2023-06-29 04:06] LABS: Hematocrit 26.2 % (36.0-46.0); Hemoglobin 8.4 g/dL (12.2-16.2); Red Blood Cells 2.87 10^6/uL (4.0-5.20)
[2023-06-29 04:09] LABS: Mean Corpuscular Hemoglobin 29.3 pg (28.0-32.0); Mean Corpuscular Volume 91.4 fL (80.0-100.0); Red Cell Distribution Width 14.1 % (11.8-14.3); White Blood Cell 26.2 10^3/uL (4.4-10.8)
[2023-06-29 04:27] LABS: Basophils % (manual) 0 (0.0-2.0); Blast Cells 0; Metamyelocytes % 0; Myelocytes % 0; Promyelocytes % 0; Reactive Lymphocytes 0
[2023-06-29 04:38] LABS: Alanine Aminotransferase 36 U/L (7-40); Albumin 3.7 g/dL (3.2-4.8); Aspartate Aminotransferase 40 U/L (13-40); Chloride 101 mmol/L (98-107); Potassium 4.2 mmol/L (3.5-5.1); Sodium 137 mmol/L (136-145)
[2023-06-29 04:39] LABS: Total Protein 6.9 g/dL (5.7-8.2)
[2023-06-29 04:40] LABS: Anion Gap 7 (5-15); Calcium 8.7 mg/dL (8.7-10.4); Carbon Dioxide 29 mmol/L (20-30)
[2023-06-29 04:45] LABS: BUN/Creatinine Ratio 12.6 (10.0-20.0); Blood Urea Nitrogen 15 mg/dL (9-23); Glucose 125 mg/dL (74-106)
[2023-06-29 04:46] LABS: Alkaline Phosphatase 95 U/L (46-116)
[2023-06-29 04:57] LABS: Bilirubin, Total 1.3 mg/dL (0.2-1.0)
[2023-06-29 05:00] LABS: Band Neutrophils % (manual) 1; Eosinophils % (manual) 2 (0-7); Lymphocytes % (manual) 7 (10.0-50.0); Monocytes % (manual) 5 (0-12); Platelet Estimate Adequate
[2023-06-29] MEDS: METOCLOPRAMIDE HCL 5MG/ml INJ 2ml VIAL IV SCH ×3 (06:26→21:53)
[2023-06-29] MEDS: EMPAGLIFLOZIN 10 MG TAB PO SCH (06:27)
[2023-06-29] MEDS: FUROSEMIDE 20 MG/2 ML VIAL IV SCH ×2 (06:27→18:58)
[2023-06-29] MEDS: ACETAMINOPHEN 650 mg PER 20.3 mL UD GT PRN (07:36)
[2023-06-29 07:37] LABS: Base Excess 4.3 mmol/L (-2.0-2.0)
[2023-06-29] MEDS: POTASSIUM CHL 20MEQ/100ML 100 ML IV SCH ×2 (09:29→22:25)
[2023-06-29] MEDS: MAGNESIUM OXIDE 400 MG TAB PO SCH (09:29)
[2023-06-29] MEDS: PANTOPRAZOLE 40 MG/10 ML VIAL INJ IV SCH ×2 (09:29→21:53)
[2023-06-29] MEDS: LACTULOSE 20Gm/30ML SOLN PO SCH ×2 (09:29→21:52)
[2023-06-29] MEDS: SODIUM CHLOR 0.9% PF (SALINE LOCK) 10ML VIAL/SYR IV SCH ×2 (09:29→21:53)
[2023-06-29] MEDS: ENOXAPARIN SOD 40 MG/0.4 ML SYRINGE SC SCH (09:30)
[2023-06-29] MEDS: AMIODARONE 450mg/250ml AE 250 ML IV SCH (12:44)
[2023-06-29] MEDS: SODIUM FERR GLUC 62.5MG/5ML 125 MG in SODIUM CHL 0.9% 100 ML IV SCH (12:55)
[2023-06-29] MEDS: fentaNYL Drip 2500mCg/250mlNS 250 ML IV SCH (17:23)
[2023-06-29] MEDS: NOREPINEPHRINE 8 MG/250ML KIT 250 ML IV SCH (17:25)
[2023-06-29] MEDS: Jevity 1.2 Cal/Fiber 1 Liter GT SCH (20:54)
[2023-06-29 21:44] LABS: Potassium 3.9 mmol/L (3.5-5.1)
[2023-06-29] MEDS: ATORVASTATIN 20 MG TAB PO SCH (21:52)
[2023-06-30] VITALS (115 sets, daily range): BP systolic 11–120; BP diastolic 39–74; PULSE 20–113; RESP 17–25; TEMP 98.1–102.4; O2SAT 91–100
[2023-06-30] MEDS: MIDAZOLAM DRIP 50 mg/50mL 50 ML IV SCH ×7 (00:22→20:48)
[2023-06-30] MEDS: IPRATROPIUM BROM 0.5 MG/2.5ML INH SOL NEB SCH ×4 (00:37→18:27)
[2023-06-30] MEDS: ALBUTEROL MEDNEB 2.5 mg/3ml NEB NEB SCH ×4 (00:37→18:27)
[2023-06-30] MEDS: ACETAMINOPHEN 650 mg PER 20.3 mL UD GT PRN (00:49)
[2023-06-30] MEDS: AMIODARONE 450mg/250ml AE 250 ML IV SCH ×2 (03:50→18:21)
[2023-06-30 04:03] LABS: Hemoglobin 7.8 g/dL (12.2-16.2); Red Cell Distribution Width 14.4 % (11.8-14.3)
[2023-06-30 04:06] LABS: Hematocrit 24.2 % (36.0-46.0); Mean Corpuscular Hemoglobin 29.4 pg (28.0-32.0); Mean Corpuscular Hgb Conc. 32.3 g/dL (32.0-36.0); Red Blood Cells 2.66 10^6/uL (4.0-5.20); White Blood Cell 24.1 10^3/uL (4.4-10.8)
[2023-06-30 04:25] LABS: Alanine Aminotransferase 35 U/L (7-40); Albumin 3.6 g/dL (3.2-4.8); Alkaline Phosphatase 104 U/L (46-116); Anion Gap 7 (5-15); Aspartate Aminotransferase 46 U/L (13-40); BUN/Creatinine Ratio 11.5 (10.0-20.0); Bilirubin, Total 1.2 mg/dL (0.2-1.0); Blood Urea Nitrogen 13 mg/dL (9-23); Calcium 8.5 mg/dL (8.7-10.4); Carbon Dioxide 28 mmol/L (20-30); Chloride 102 mmol/L (98-107); Glucose 144 mg/dL (74-106); Potassium 3.8 mmol/L (3.5-5.1); Sodium 137 mmol/L (136-145); Total Protein 6.9 g/dL (5.7-8.2)
[2023-06-30 04:43] LABS: Blast Cells 0; Metamyelocytes % 0; Myelocytes % 0; Reactive Lymphocytes 0
[2023-06-30] MEDS: EMPAGLIFLOZIN 10 MG TAB PO SCH (06:16)
[2023-06-30] MEDS: METOCLOPRAMIDE HCL 5MG/ml INJ 2ml VIAL IV SCH ×3 (06:16→21:02)
[2023-06-30] MEDS: fentaNYL Drip 2500mCg/250mlNS 250 ML IV SCH ×2 (06:18→23:55)
[2023-06-30] MEDS: NOREPINEPHRINE 8 MG/250ML KIT 250 ML IV SCH (06:19)
[2023-06-30 08:15] LABS: Band Neutrophils % (manual) 2; Basophils % (manual) 1 (0.0-2.0); Eosinophils % (manual) 1 (0-7); Lymphocytes % (manual) 4 (10.0-50.0); Monocytes % (manual) 6 (0-12); Promyelocytes % 2; Toxic Granulation Moderate
[2023-06-30 08:16] LABS: Platelet Estimate Adequate
[2023-06-30 08:53] LABS: Base Excess 2.4 mmol/L (-2.0-2.0)
[2023-06-30] MEDS: LACTULOSE 20Gm/30ML SOLN PO SCH ×2 (09:19→21:03)
[2023-06-30] MEDS: SODIUM CHLOR 0.9% PF (SALINE LOCK) 10ML VIAL/SYR IV SCH ×2 (09:19→21:03)
[2023-06-30] MEDS: PANTOPRAZOLE 40 MG/10 ML VIAL INJ IV SCH ×2 (09:19→21:02)
[2023-06-30] MEDS: FUROSEMIDE 20 MG/2 ML VIAL IV SCH ×2 (09:19→17:32)
[2023-06-30] MEDS: MAGNESIUM OXIDE 400 MG TAB PO SCH (09:19)
[2023-06-30] MEDS: POTASSIUM CHL 20MEQ/100ML 100 ML IV SCH ×4 (09:20→23:28)
[2023-06-30] MEDS: SODIUM FERR GLUC 62.5MG/5ML 125 MG in SODIUM CHL 0.9% 100 ML IV SCH (12:38)
[2023-06-30] MEDS ORDERED: VANCOMYCIN 1GM/200ML 250 ML IV ONE (16:15)
[2023-06-30] MEDS ORDERED: PIPERACILLIN-TAZOB 3.375GM 100 ML IV ONE (16:15)
[2023-06-30] MEDS ORDERED: ENOXAPARIN SOD 40 MG/0.4 ML SYRINGE SC ONE (16:15)
[2023-06-30] MEDS ORDERED: VANCOMYCIN PER PHARMACY 0 MG IV SCH (16:30)
[2023-06-30] MEDS: PIPERACILLIN-TAZOB 3.375GM 100 ML IV SCH (18:26)
[2023-06-30] MEDS: ATORVASTATIN 20 MG TAB PO SCH (21:03)
[2023-07-01] VITALS (103 sets, daily range): BP systolic 97–134; BP diastolic 53–78; PULSE 60–99; RESP 13–22; TEMP 97.7–100.9; O2SAT 90–100
[2023-07-01] MEDS: ALBUTEROL MEDNEB 2.5 mg/3ml NEB NEB SCH ×4 (00:03→18:05)
[2023-07-01] MEDS: IPRATROPIUM BROM 0.5 MG/2.5ML INH SOL NEB SCH ×4 (00:03→18:00)
[2023-07-01] MEDS: MIDAZOLAM DRIP 50 mg/50mL 50 ML IV SCH ×7 (00:21→20:44)
[2023-07-01] MEDS: PIPERACILLIN-TAZOB 3.375GM 100 ML IV SCH ×3 (01:38→17:15)
[2023-07-01 04:07] LABS: Basophils # (auto) 0.1 10 ^3/uL (0-0.2); Basophils % (auto) 0.3 % (0.0-2.0); Eosinophils # (auto) 0.5 10 ^3/uL (0-0.8); Eosinophils % (auto) 2.5 % (0.0-7.0); Hematocrit 29.5 % (36.0-46.0); Hemoglobin 9.7 g/dL (12.2-16.2); Lymphocytes # (auto) 1.7 10 ^3/uL (0.4-5.4); Lymphocytes % (auto) 7.8 % (10.0-50.0); Mean Corpuscular Hemoglobin 29.7 pg (28.0-32.0); Mean Corpuscular Hgb Conc. 32.7 g/dL (32.0-36.0); Mean Corpuscular Volume 90.8 fL (80.0-100.0); Monocytes # (auto) 2.1 10 ^3/uL (0-1.3); Monocytes % (auto) 9.7 % (0.0-12.0); Neutrophils # (auto) 17.2 10 ^3/uL (1.6-8.6); Neutrophils % (auto) 79.7 % (37.0-80.0); Red Blood Cells 3.25 10^6/uL (4.0-5.20); Red Cell Distribution Width 15.4 % (11.8-14.3); White Blood Cell 21.6 10^3/uL (4.4-10.8)
[2023-07-01 04:23] LABS: Anion Gap 7 (5-15); Carbon Dioxide 27 mmol/L (20-30); Chloride 100 mmol/L (98-107); Potassium 4.1 mmol/L (3.5-5.1); Sodium 134 mmol/L (136-145)
[2023-07-01 04:24] LABS: Calcium 8.9 mg/dL (8.7-10.4)
[2023-07-01 04:29] LABS: BUN/Creatinine Ratio 13.1 (10.0-20.0); Blood Urea Nitrogen 13 mg/dL (9-23); Glucose 135 mg/dL (74-106)
[2023-07-01] MEDS: FUROSEMIDE 20 MG/2 ML VIAL IV SCH ×2 (05:41→21:39)
[2023-07-01] MEDS: METOCLOPRAMIDE HCL 5MG/ml INJ 2ml VIAL IV SCH ×3 (05:41→21:41)
[2023-07-01] MEDS: EMPAGLIFLOZIN 10 MG TAB PO SCH (05:41)
[2023-07-01 07:51] LABS: Base Excess 3.3 mmol/L (-2.0-2.0)
[2023-07-01] MEDS: AMIODARONE 450mg/250ml AE 250 ML IV SCH (08:26)
[2023-07-01] MEDS: LACTULOSE 20Gm/30ML SOLN PO SCH ×2 (10:00→21:41)
[2023-07-01] MEDS ORDERED: VANCOMYCIN 1GM/200ML 250 ML IV SCH (10:00)
[2023-07-01] MEDS: PANTOPRAZOLE 40 MG/10 ML VIAL INJ IV SCH ×2 (10:22→21:39)
[2023-07-01] MEDS: MAGNESIUM OXIDE 400 MG TAB PO SCH (10:22)
[2023-07-01] MEDS: SODIUM CHLOR 0.9% PF (SALINE LOCK) 10ML VIAL/SYR IV SCH ×2 (10:22→21:41)
[2023-07-01] MEDS: POTASSIUM CHL 20MEQ/100ML 100 ML IV SCH ×2 (10:31→21:39)
[2023-07-01] MEDS: SODIUM FERR GLUC 62.5MG/5ML 125 MG in SODIUM CHL 0.9% 100 ML IV SCH (12:46)
[2023-07-01] MEDS: NOREPINEPHRINE 8 MG/250ML KIT 250 ML IV SCH (13:35)
[2023-07-01] MEDS: fentaNYL Drip 2500mCg/250mlNS 250 ML IV SCH (13:36)
[2023-07-01] MEDS: VANCOMYCIN 1GM/200ML 250 ML IV SCH (14:00)
[2023-07-01 15:18] LABS: COVID19 ANTIGEN SOFIA FIA NEGATIVE (NEGATIVE)
[2023-07-01 15:19] LABS: Rapid Influenza A Negative (Negative); Rapid Influenza B Negative (Negative)
[2023-07-01] MEDS: ACETAMINOPHEN 650 mg PER 20.3 mL UD GT PRN (19:55)
[2023-07-01] MEDS: ATORVASTATIN 20 MG TAB PO SCH (21:39)
[2023-07-02] VITALS (107 sets, daily range): BP systolic 82–125; BP diastolic 37–81; PULSE 65–89; RESP 14–22; TEMP 98.2–99.7; O2SAT 87–100
[2023-07-02] MEDS: AMIODARONE 450mg/250ml AE 250 ML IV SCH ×2 (00:04→15:23)
[2023-07-02] MEDS: ALBUTEROL MEDNEB 2.5 mg/3ml NEB NEB SCH ×4 (00:09→18:27)
[2023-07-02] MEDS: IPRATROPIUM BROM 0.5 MG/2.5ML INH SOL NEB SCH ×4 (00:09→18:27)
[2023-07-02] MEDS: MIDAZOLAM DRIP 50 mg/50mL 50 ML IV SCH ×6 (00:26→18:11)
[2023-07-02] MEDS: PIPERACILLIN-TAZOB 3.375GM 100 ML IV SCH ×3 (01:16→17:21)
[2023-07-02 04:11] LABS: Basophils # (auto) 0.1 10 ^3/uL (0-0.2); Eosinophils # (auto) 0.4 10 ^3/uL (0-0.8); Eosinophils % (auto) 2.7 % (0.0-7.0); Lymphocytes # (auto) 1.2 10 ^3/uL (0.4-5.4); Mean Corpuscular Hgb Conc. 32.5 g/dL (32.0-36.0); Monocytes # (auto) 1.2 10 ^3/uL (0-1.3); Red Cell Distribution Width 14.9 % (11.8-14.3)
[2023-07-02 04:14] LABS: Basophils % (auto) 0.6 % (0.0-2.0); Hematocrit 27.6 % (36.0-46.0); Lymphocytes % (auto) 9.5 % (10.0-50.0); Mean Corpuscular Hemoglobin 29.6 pg (28.0-32.0); Mean Corpuscular Volume 90.9 fL (80.0-100.0); Neutrophils # (auto) 10.3 10 ^3/uL (1.6-8.6); Neutrophils % (auto) 78.2 % (37.0-80.0); Red Blood Cells 3.04 10^6/uL (4.0-5.20); White Blood Cell 13.2 10^3/uL (4.4-10.8)
[2023-07-02 04:25] LABS: INR 1.1 (0.9-1.15); Partial Thromboplastin Time 31.3 SEC (24.5-34.5); Prothrombin Time 11.5 sec (9.3-11.8)
[2023-07-02 04:35] LABS: Alanine Aminotransferase 41 U/L (7-40); Alkaline Phosphatase 150 U/L (46-116); Anion Gap 7 (5-15); BUN/Creatinine Ratio 10.2 (10.0-20.0); Blood Urea Nitrogen 10 mg/dL (9-23); Calcium 8.7 mg/dL (8.7-10.4); Carbon Dioxide 27 mmol/L (20-30); Chloride 100 mmol/L (98-107); Glucose 108 mg/dL (74-106); Sodium 134 mmol/L (136-145)
[2023-07-02 04:36] LABS: Albumin 3.5 g/dL (3.2-4.8)
[2023-07-02 04:37] LABS: Aspartate Aminotransferase 50 U/L (13-40); Bilirubin, Total 1.2 mg/dL (0.2-1.0); Total Protein 6.9 g/dL (5.7-8.2)
[2023-07-02 04:52] LABS: Potassium 2.9 mmol/L (3.5-5.1)
[2023-07-02 04:53] LABS: Erythrocyte Sedimentation Rate 112 mm/hr (0-20)
[2023-07-02 05:16] LABS: CRP High Sensitivity 18.46 mg/dL (<1.0)
[2023-07-02] MEDS: POTASSIUM CHL 20MEQ/100ML 100 ML IV SCH ×4 (06:10→21:31)
[2023-07-02] MEDS: METOCLOPRAMIDE HCL 5MG/ml INJ 2ml VIAL IV SCH ×3 (06:10→21:31)
[2023-07-02] MEDS: EMPAGLIFLOZIN 10 MG TAB PO SCH (06:11)
[2023-07-02] MEDS: fentaNYL Drip 2500mCg/250mlNS 250 ML IV SCH (06:12)
[2023-07-02 07:54] LABS: Base Excess 1.3 mmol/L (-2.0-2.0)
[2023-07-02] MEDS ORDERED: MAGNESIUM SULFATE 1GM/100ML 100 ML IV ONE (08:30)
[2023-07-02] MEDS: PANTOPRAZOLE 40 MG/10 ML VIAL INJ IV SCH ×2 (09:41→21:31)
[2023-07-02] MEDS: MAGNESIUM OXIDE 400 MG TAB PO SCH (09:41)
[2023-07-02] MEDS: VANCOMYCIN 1GM/200ML 250 ML IV SCH (09:42)
[2023-07-02] MEDS: SODIUM CHLOR 0.9% PF (SALINE LOCK) 10ML VIAL/SYR IV SCH ×2 (09:42→21:31)
[2023-07-02] MEDS: SODIUM FERR GLUC 62.5MG/5ML 125 MG in SODIUM CHL 0.9% 100 ML IV SCH (11:54)
[2023-07-02] MEDS: FUROSEMIDE 20 MG/2 ML VIAL IV SCH (18:11)
[2023-07-02] MEDS: ATORVASTATIN 20 MG TAB PO SCH (21:31)
[2023-07-03] VITALS (98 sets, daily range): BP systolic 95–120; BP diastolic 42–75; PULSE 35–92; RESP 14–22; TEMP 98.2–99.7; O2SAT 93–100
[2023-07-03] MEDS: PIPERACILLIN-TAZOB 3.375GM 100 ML IV SCH ×3 (00:11→16:23)
[2023-07-03] MEDS: ALBUTEROL MEDNEB 2.5 mg/3ml NEB NEB SCH ×5 (00:15→18:16)
[2023-07-03] MEDS: IPRATROPIUM BROM 0.5 MG/2.5ML INH SOL NEB SCH ×5 (00:15→18:16)
[2023-07-03] MEDS: MIDAZOLAM DRIP 50 mg/50mL 50 ML IV SCH ×2 (01:34→12:04)
[2023-07-03] MEDS: VANCOMYCIN 1GM/200ML 250 ML IV SCH ×2 (04:44→20:43)
[2023-07-03 04:45] LABS: Basophils # (auto) 0.1 10 ^3/uL (0-0.2); Eosinophils # (auto) 0.5 10 ^3/uL (0-0.8); Nucleated Red Blood Cells % 0.1 %
[2023-07-03 04:47] LABS: Basophils % (auto) 0.9 % (0.0-2.0); Eosinophils % (auto) 4.2 % (0.0-7.0); Hemoglobin 8.4 g/dL (12.2-16.2); Lymphocytes # (auto) 1.6 10 ^3/uL (0.4-5.4); Lymphocytes % (auto) 12.9 % (10.0-50.0); Mean Corpuscular Hemoglobin 29.7 pg (28.0-32.0); Mean Corpuscular Hgb Conc. 32.4 g/dL (32.0-36.0); Mean Corpuscular Volume 91.9 fL (80.0-100.0); Monocytes # (auto) 1.6 10 ^3/uL (0-1.3); Monocytes % (auto) 13.2 % (0.0-12.0); Neutrophils # (auto) 8.3 10 ^3/uL (1.6-8.6); Neutrophils % (auto) 68.8 % (37.0-80.0); Red Blood Cells 2.83 10^6/uL (4.0-5.20); Red Cell Distribution Width 15.1 % (11.8-14.3)
[2023-07-03 05:10] LABS: Alanine Aminotransferase 42 U/L (7-40); Albumin 3.5 g/dL (3.2-4.8); Alkaline Phosphatase 178 U/L (46-116); Anion Gap 7 (5-15); Aspartate Aminotransferase 57 U/L (13-40); BUN/Creatinine Ratio 8.5 (10.0-20.0); Blood Urea Nitrogen 9 mg/dL (9-23); Calcium 8.5 mg/dL (8.7-10.4); Carbon Dioxide 26 mmol/L (20-30); Chloride 99 mmol/L (98-107); Glucose 122 mg/dL (74-106); Potassium 3.5 mmol/L (3.5-5.1); Sodium 132 mmol/L (136-145)
[2023-07-03 05:11] LABS: Bilirubin, Total 0.9 mg/dL (0.2-1.0); Total Protein 6.9 g/dL (5.7-8.2)
[2023-07-03] MEDS: METOCLOPRAMIDE HCL 5MG/ml INJ 2ml VIAL IV SCH ×3 (06:00→22:17)
[2023-07-03] MEDS: FUROSEMIDE 20 MG/2 ML VIAL IV SCH (06:08)
[2023-07-03] MEDS: NOREPINEPHRINE 8 MG/250ML KIT 250 ML IV SCH (06:12)
[2023-07-03] MEDS: AMIODARONE 450mg/250ml AE 250 ML IV SCH ×2 (06:12→20:39)
[2023-07-03] MEDS ORDERED: MAGNESIUM SULFATE 1GM/100ML 100 ML IV ONE ×2 (06:30→07:30)
[2023-07-03] MEDS: EMPAGLIFLOZIN 10 MG TAB PO SCH (07:00)
[2023-07-03] MEDS ORDERED: POTASSIUM CHL 20MEQ/100ML 100 ML IV ONE (07:30)
[2023-07-03] MEDS ORDERED: SODIUM CHLORIDE 0.9% 300 ML IV ONE (07:30)
[2023-07-03 07:43] LABS: Base Excess 0.5 mmol/L (-2.0-2.0)
[2023-07-03] MEDS: POTASSIUM CHL 20MEQ/100ML 100 ML IV SCH ×4 (07:47→22:17)
[2023-07-03] MEDS ORDERED: IODIXANOL 320MG/ML 100ML BTL IV ONE (08:30)
[2023-07-03] MEDS ORDERED: LIDOCAINE 2%HCL (LOCAL ANESTH.) INJ 20ML MDV ONE (08:31)
[2023-07-03] MEDS ORDERED: VANCOMYCIN HCL 1000 MG VL ONE (08:44)
[2023-07-03] MEDS ORDERED: VANCOMYCIN 1GM/200ML 250 ML IV ONE (08:44)
[2023-07-03 09:06] LABS: EBV Ab VCA IgG Antibody >600.0 U/mL (0.0-17.9)
[2023-07-03] MEDS ORDERED: GELATIN 1 SPONGE SIZE 100 TOP ONE (09:28)
[2023-07-03] MEDS: MAGNESIUM OXIDE 400 MG TAB PO SCH (10:00)
[2023-07-03] MEDS: SODIUM CHLOR 0.9% PF (SALINE LOCK) 10ML VIAL/SYR IV SCH ×2 (10:35→22:17)
[2023-07-03] MEDS: PANTOPRAZOLE 40 MG/10 ML VIAL INJ IV SCH ×2 (10:54→22:17)
[2023-07-03] MEDS: Jevity 1.2 Cal/Fiber 1 Liter GT SCH (12:04)
[2023-07-03] MEDS: fentaNYL Drip 2500mCg/250mlNS 250 ML IV SCH (12:05)
[2023-07-03 13:07] LABS: Hepatitis B Core Total Antibod Negative (Negative)
[2023-07-03] MEDS: SODIUM FERR GLUC 62.5MG/5ML 125 MG in SODIUM CHL 0.9% 100 ML IV SCH (14:16)
[2023-07-03] MEDS: ATORVASTATIN 20 MG TAB PO SCH (22:17)
[2023-07-04] VITALS (109 sets, daily range): BP systolic 88–141; BP diastolic 43–85; PULSE 67–95; RESP 16–32; TEMP 98.8–100.4; O2SAT 86–100
[2023-07-04] MEDS: MIDAZOLAM DRIP 50 mg/50mL 50 ML IV SCH ×3 (00:06→07:04)
[2023-07-04] MEDS: PIPERACILLIN-TAZOB 3.375GM 100 ML IV SCH ×2 (00:17→08:25)
[2023-07-04] MEDS: fentaNYL Drip 2500mCg/250mlNS 250 ML IV SCH ×2 (00:23→21:41)
[2023-07-04] MEDS: IPRATROPIUM BROM 0.5 MG/2.5ML INH SOL NEB SCH ×3 (00:42→18:27)
[2023-07-04] MEDS: ALBUTEROL MEDNEB 2.5 mg/3ml NEB NEB SCH ×3 (00:42→18:26)
[2023-07-04] MEDS: NOREPINEPHRINE 8 MG/250ML KIT 250 ML IV SCH ×2 (01:30→07:51)
[2023-07-04] MEDS: EMPAGLIFLOZIN 10 MG TAB PO SCH (05:55)
[2023-07-04] MEDS: METOCLOPRAMIDE HCL 5MG/ml INJ 2ml VIAL IV SCH ×3 (05:55→21:31)
[2023-07-04 06:38] LABS: Basophils # (auto) 0.1 10 ^3/uL (0-0.2); Eosinophils # (auto) 0.7 10 ^3/uL (0-0.8); Hemoglobin 9.1 g/dL (12.2-16.2); Mean Corpuscular Hemoglobin 29.4 pg (28.0-32.0); Monocytes # (auto) 1.7 10 ^3/uL (0-1.3); Neutrophils # (auto) 6.6 10 ^3/uL (1.6-8.6); Nucleated Red Blood Cells % 0.1 %
[2023-07-04 06:41] LABS: Basophils % (auto) 0.6 % (0.0-2.0); Eosinophils % (auto) 6.8 % (0.0-7.0); Lymphocytes # (auto) 1.4 10 ^3/uL (0.4-5.4); Lymphocytes % (auto) 13.5 % (10.0-50.0); Mean Corpuscular Hgb Conc. 31.5 g/dL (32.0-36.0); Mean Corpuscular Volume 93.4 fL (80.0-100.0); Monocytes % (auto) 16.4 % (0.0-12.0); Neutrophils % (auto) 62.7 % (37.0-80.0); Red Cell Distribution Width 15.3 % (11.8-14.3); White Blood Cell 10.6 10^3/uL (4.4-10.8)
[2023-07-04 06:43] LABS: Chloride 103 mmol/L (98-107); Potassium 3.7 mmol/L (3.5-5.1); Sodium 135 mmol/L (136-145)
[2023-07-04 06:44] LABS: Anion Gap 6 (5-15); Calcium 8.6 mg/dL (8.7-10.4); Carbon Dioxide 26 mmol/L (20-30)
[2023-07-04 06:49] LABS: BUN/Creatinine Ratio 5.4 (10.0-20.0); Blood Urea Nitrogen 5 mg/dL (9-23); Glucose 122 mg/dL (74-106); Magnesium 2.2 mg/dL (1.6-2.6)
[2023-07-04] MEDS ORDERED: CALCIUM GLUC 1,000mg/50ml-NS 50 ML IV ONE (07:15)
[2023-07-04 07:20] LABS: CRP High Sensitivity 11.73 mg/dL (<1.0)
[2023-07-04 07:20] LABS: Base Excess 3.6 mmol/L (-2.0-2.0)
[2023-07-04] MEDS: POTASSIUM CHL 20MEQ/100ML 100 ML IV SCH ×4 (08:21→21:30)
[2023-07-04 08:34] LABS: Hepatitis B Surface Antibody Negative (Negative)
[2023-07-04 08:46] LABS: Hepatitis B Surface Antigen Negative (Negative)
[2023-07-04] MEDS ORDERED: ENOXAPARIN SOD 40 MG/0.4 ML SYRINGE SC SCH (10:00)
[2023-07-04] MEDS: PANTOPRAZOLE 40 MG/10 ML VIAL INJ IV SCH ×2 (10:01→21:31)
[2023-07-04] MEDS: ACETAMINOPHEN 650 mg PER 20.3 mL UD GT PRN ×2 (10:08→16:03)
[2023-07-04] MEDS: MAGNESIUM OXIDE 400 MG TAB PO SCH (10:08)
[2023-07-04] MEDS: SODIUM CHLOR 0.9% PF (SALINE LOCK) 10ML VIAL/SYR IV SCH ×2 (10:08→21:31)
[2023-07-04] MEDS: VANCOMYCIN 1GM/200ML 250 ML IV SCH (10:29)
[2023-07-04] MEDS ORDERED: MEROPENEM 1GM IVPB 100 ML IV ONE (11:00)
[2023-07-04] MEDS: FUROSEMIDE 20 MG/2 ML VIAL IV SCH (12:32)
[2023-07-04] MEDS: AMIODARONE 450mg/250ml AE 250 ML IV SCH (12:32)
[2023-07-04] MEDS: ENOXAPARIN SOD 40 MG/0.4 ML SYRINGE SC SCH (14:37)
[2023-07-04] MEDS ORDERED: VANCOMYCIN PER PHARMACY 0 MG IV SCH (17:45)
[2023-07-04] MEDS: Jevity 1.2 Cal/Fiber 1 Liter GT SCH (18:25)
[2023-07-04] MEDS: MEROPENEM 1GM IVPB 100 ML IV SCH (21:30)
[2023-07-04] MEDS: ATORVASTATIN 20 MG TAB PO SCH (21:31)
[2023-07-04] MEDS: DOXYCYCLINE 100 MG TAB/CAP PO SCH (21:31)
[2023-07-05] VITALS (109 sets, daily range): BP systolic 92–170; BP diastolic 45–93; PULSE 76–128; RESP 14–33; TEMP 98.6–99.5; O2SAT 85–100
[2023-07-05] MEDS: ALBUTEROL MEDNEB 2.5 mg/3ml NEB NEB SCH ×4 (00:32→18:48)
[2023-07-05] MEDS: IPRATROPIUM BROM 0.5 MG/2.5ML INH SOL NEB SCH ×4 (00:32→18:48)
[2023-07-05] MEDS: VANCOMYCIN 750mg/250ml 250 ML IV SCH ×2 (00:50→15:44)
[2023-07-05] MEDS: AMIODARONE 450mg/250ml AE 250 ML IV SCH ×2 (02:30→17:14)
[2023-07-05 04:32] LABS: Calcium 8.6 mg/dL (8.7-10.4); Chloride 103 mmol/L (98-107); Potassium 3.7 mmol/L (3.5-5.1); Sodium 136 mmol/L (136-145)
[2023-07-05 04:33] LABS: Anion Gap 7 (5-15); Carbon Dioxide 26 mmol/L (20-30)
[2023-07-05 04:38] LABS: Blood Urea Nitrogen 7 mg/dL (9-23); Glucose 115 mg/dL (74-106)
[2023-07-05 04:55] LABS: Basophils # (auto) 0.1 10 ^3/uL (0-0.2); Basophils % (auto) 0.7 % (0.0-2.0); Eosinophils # (auto) 0.4 10 ^3/uL (0-0.8); Eosinophils % (auto) 4.6 % (0.0-7.0); Hematocrit 29.1 % (36.0-46.0); Hemoglobin 9.5 g/dL (12.2-16.2); Lymphocytes # (auto) 1.2 10 ^3/uL (0.4-5.4); Lymphocytes % (auto) 14.1 % (10.0-50.0); Mean Corpuscular Hemoglobin 30.5 pg (28.0-32.0); Mean Corpuscular Hgb Conc. 32.7 g/dL (32.0-36.0); Mean Corpuscular Volume 93.2 fL (80.0-100.0); Neutrophils # (auto) 5.9 10 ^3/uL (1.6-8.6); Neutrophils % (auto) 68.6 % (37.0-80.0); Nucleated Red Blood Cells % 0.1 %; Red Blood Cells 3.13 10^6/uL (4.0-5.20); Red Cell Distribution Width 15.7 % (11.8-14.3); White Blood Cell 8.6 10^3/uL (4.4-10.8)
[2023-07-05] MEDS: METOCLOPRAMIDE HCL 5MG/ml INJ 2ml VIAL IV SCH ×3 (06:33→22:27)
[2023-07-05] MEDS: MEROPENEM 1GM IVPB 100 ML IV SCH ×3 (06:34→22:27)
[2023-07-05] MEDS: EMPAGLIFLOZIN 10 MG TAB PO SCH (06:34)
[2023-07-05] MEDS ORDERED: CALCIUM GLUC 1,000mg/50ml-NS 50 ML IV ONE (07:15)
[2023-07-05] MEDS: POTASSIUM CHL 20MEQ/100ML 100 ML IV SCH ×4 (07:42→21:59)
[2023-07-05] MEDS: ONDANSETRON HCL 4 MG/2 ML VIAL IV PRN ×3 (09:34→22:53)
[2023-07-05] MEDS ORDERED: LORazepam 2MG/ML-1ML VIAL ONE (09:53)
[2023-07-05] MEDS ORDERED: LORazepam 2MG/ML-1ML VIAL IV ONE (10:00)
[2023-07-05] MEDS: FUROSEMIDE 20 MG/2 ML VIAL IV SCH (10:52)
[2023-07-05] MEDS: SODIUM CHLOR 0.9% PF (SALINE LOCK) 10ML VIAL/SYR IV SCH ×2 (10:52→22:27)
[2023-07-05] MEDS: PANTOPRAZOLE 40 MG/10 ML VIAL INJ IV SCH ×2 (10:52→22:27)
[2023-07-05] MEDS: MAGNESIUM OXIDE 400 MG TAB PO SCH (10:53)
[2023-07-05] MEDS: DOXYCYCLINE 100 MG TAB/CAP PO SCH ×2 (10:53→22:27)
[2023-07-05] MEDS: ENOXAPARIN SOD 40 MG/0.4 ML SYRINGE SC SCH (10:53)
[2023-07-05] MEDS: MIDAZOLAM DRIP 50 mg/50mL 50 ML IV SCH ×2 (21:15→23:08)
[2023-07-05] MEDS: ATORVASTATIN 20 MG TAB PO SCH (22:27)
[2023-07-05] MEDS ORDERED: MAGNESIUM OXIDE 400 MG TAB PO ONE (22:30)
[2023-07-05] MEDS: METOPROLOL TARTRATE 25 MG TAB PO SCH (22:37)
[2023-07-06] VITALS (110 sets, daily range): BP systolic 89–138; BP diastolic 38–69; PULSE 60–95; RESP 12–24; TEMP 97.7–99.5; O2SAT 92–100
[2023-07-06] MEDS: ALBUTEROL MEDNEB 2.5 mg/3ml NEB NEB SCH ×4 (00:18→18:18)
[2023-07-06] MEDS: IPRATROPIUM BROM 0.5 MG/2.5ML INH SOL NEB SCH ×4 (00:18→18:18)
[2023-07-06] MEDS: NOREPINEPHRINE 8 MG/250ML KIT 250 ML IV SCH ×2 (01:30→05:32)
[2023-07-06] MEDS: fentaNYL Drip 2500mCg/250mlNS 250 ML IV SCH ×3 (01:52→20:54)
[2023-07-06] MEDS: MIDAZOLAM DRIP 50 mg/50mL 50 ML IV SCH ×2 (04:17→20:53)
[2023-07-06] MEDS: VANCOMYCIN 750mg/250ml 250 ML IV SCH ×2 (04:33→18:51)
[2023-07-06 05:03] LABS: Alanine Aminotransferase 23 U/L (7-40); Alkaline Phosphatase 124 U/L (46-116); Anion Gap 8 (5-15); BUN/Creatinine Ratio 9.8 (10.0-20.0); Blood Urea Nitrogen 8 mg/dL (9-23); Calcium 8.6 mg/dL (8.7-10.4); Carbon Dioxide 26 mmol/L (20-30); Chloride 103 mmol/L (98-107); Glucose 96 mg/dL (74-106); Magnesium 1.8 mg/dL (1.6-2.6); Potassium 3.7 mmol/L (3.5-5.1); Sodium 137 mmol/L (136-145)
[2023-07-06 05:04] LABS: Albumin 3.2 g/dL (3.2-4.8); Aspartate Aminotransferase 27 U/L (13-40)
[2023-07-06 05:05] LABS: Bilirubin, Total 0.5 mg/dL (0.2-1.0); Total Protein 6.5 g/dL (5.7-8.2)
[2023-07-06 05:16] LABS: CRP High Sensitivity 2.27 mg/dL (<1.0)
[2023-07-06] MEDS: METOCLOPRAMIDE HCL 5MG/ml INJ 2ml VIAL IV SCH ×3 (06:15→21:53)
[2023-07-06] MEDS: EMPAGLIFLOZIN 10 MG TAB PO SCH (06:15)
[2023-07-06] MEDS: MEROPENEM 1GM IVPB 100 ML IV SCH ×3 (06:15→21:54)
[2023-07-06] MEDS: AMIODARONE 450mg/250ml AE 250 ML IV SCH ×2 (06:15→20:53)
[2023-07-06] MEDS ORDERED: MAGNESIUM SULFATE 1GM/100ML 100 ML IV ONE (08:30)
[2023-07-06 08:42] LABS: Base Excess 1.7 mmol/L (-2.0-2.0)
[2023-07-06] MEDS: PANTOPRAZOLE 40 MG/10 ML VIAL INJ IV SCH ×2 (10:36→21:53)
[2023-07-06] MEDS: SODIUM CHLOR 0.9% PF (SALINE LOCK) 10ML VIAL/SYR IV SCH ×2 (10:37→22:05)
[2023-07-06] MEDS: DOXYCYCLINE 100 MG TAB/CAP PO SCH ×2 (10:37→21:54)
[2023-07-06] MEDS: ENOXAPARIN SOD 40 MG/0.4 ML SYRINGE SC SCH (10:38)
[2023-07-06] MEDS: MAGNESIUM OXIDE 400 MG TAB PO SCH ×2 (10:38→21:54)
[2023-07-06] MEDS: POTASSIUM CHL 20MEQ/100ML 100 ML IV SCH ×2 (10:39→21:53)
[2023-07-06] MEDS: FUROSEMIDE 20 MG/2 ML VIAL IV SCH (10:39)
[2023-07-06] MEDS: MAGNESIUM SULFATE 1GM/100ML 100 ML IV SCH (12:11)
[2023-07-06] MEDS: METOPROLOL TARTRATE 25 MG TAB PO SCH ×2 (12:25→21:54)
[2023-07-06] MEDS ORDERED: POTASSIUM CHL 20 Meq TABLET PO ONE (14:00)
[2023-07-06] MEDS ORDERED: POTASSIUM EFFERVESENT TAB 25 MEQ PO ONE ×2 (14:45→15:15)
[2023-07-06] MEDS: ATORVASTATIN 20 MG TAB PO SCH (21:54)
[2023-07-07] VITALS (94 sets, daily range): BP systolic 105–155; BP diastolic 44–85; PULSE 60–95; RESP 9–24; TEMP 98.3–100; O2SAT 90–99
[2023-07-07] MEDS: IPRATROPIUM BROM 0.5 MG/2.5ML INH SOL NEB SCH ×4 (00:13→18:33)
[2023-07-07] MEDS: ALBUTEROL MEDNEB 2.5 mg/3ml NEB NEB SCH ×4 (00:13→18:33)
[2023-07-07 04:12] LABS: Basophils # (auto) 0.1 10 ^3/uL (0-0.2); Eosinophils # (auto) 0.9 10 ^3/uL (0-0.8); Lymphocytes # (auto) 1.9 10 ^3/uL (0.4-5.4); Red Cell Distribution Width 16.1 % (11.8-14.3)
[2023-07-07 04:14] LABS: Basophils % (auto) 0.9 % (0.0-2.0); Eosinophils % (auto) 9.1 % (0.0-7.0); Hematocrit 31.3 % (36.0-46.0); Lymphocytes % (auto) 18.8 % (10.0-50.0); Mean Corpuscular Hgb Conc. 31.8 g/dL (32.0-36.0); Mean Corpuscular Volume 94.4 fL (80.0-100.0); Monocytes # (auto) 1.2 10 ^3/uL (0-1.3); Monocytes % (auto) 12.1 % (0.0-12.0); Neutrophils % (auto) 59.1 % (37.0-80.0); Nucleated Red Blood Cells % 0.2 %; Red Blood Cells 3.32 10^6/uL (4.0-5.20); White Blood Cell 10.1 10^3/uL (4.4-10.8)
[2023-07-07 04:39] LABS: Alanine Aminotransferase 22 U/L (7-40); Albumin 3.4 g/dL (3.2-4.8); Alkaline Phosphatase 120 U/L (46-116); Anion Gap 6 (5-15); Aspartate Aminotransferase 27 U/L (13-40); BUN/Creatinine Ratio 7.1 (10.0-20.0); Bilirubin, Total 0.6 mg/dL (0.2-1.0); Blood Urea Nitrogen 6 mg/dL (9-23); Calcium 8.7 mg/dL (8.7-10.4); Carbon Dioxide 28 mmol/L (20-30); Chloride 100 mmol/L (98-107); Glucose 112 mg/dL (74-106); Phosphorus 2.3 mg/dL (2.4-5.1); Potassium 4.2 mmol/L (3.5-5.1); Sodium 134 mmol/L (136-145)
[2023-07-07 04:40] LABS: Total Protein 6.8 g/dL (5.7-8.2)
[2023-07-07] MEDS: fentaNYL Drip 2500mCg/250mlNS 250 ML IV SCH (05:15)
[2023-07-07] MEDS: MEROPENEM 1GM IVPB 100 ML IV SCH ×3 (05:37→21:41)
[2023-07-07] MEDS: METOCLOPRAMIDE HCL 5MG/ml INJ 2ml VIAL IV SCH ×3 (05:37→21:41)
[2023-07-07] MEDS: EMPAGLIFLOZIN 10 MG TAB PO SCH (06:32)
[2023-07-07] MEDS: VANCOMYCIN 750mg/250ml 250 ML IV SCH ×2 (09:14→23:00)
[2023-07-07] MEDS: MAGNESIUM SULFATE 1GM/100ML 100 ML IV SCH (09:53)
[2023-07-07] MEDS: METOPROLOL TARTRATE 25 MG TAB PO SCH ×2 (09:54→21:43)
[2023-07-07] MEDS: ENOXAPARIN SOD 40 MG/0.4 ML SYRINGE SC SCH (09:54)
[2023-07-07] MEDS: MAGNESIUM OXIDE 400 MG TAB PO SCH ×2 (09:54→21:43)
[2023-07-07] MEDS: FUROSEMIDE 20 MG/2 ML VIAL IV SCH (09:54)
[2023-07-07] MEDS: POTASSIUM CHL 20MEQ/100ML 100 ML IV SCH ×2 (09:54→21:41)
[2023-07-07] MEDS: DOXYCYCLINE 100 MG TAB/CAP PO SCH ×2 (09:54→21:43)
[2023-07-07] MEDS: PANTOPRAZOLE 40 MG/10 ML VIAL INJ IV SCH ×2 (09:54→21:41)
[2023-07-07] MEDS: SODIUM CHLOR 0.9% PF (SALINE LOCK) 10ML VIAL/SYR IV SCH ×2 (09:55→21:42)
[2023-07-07] MEDS: AMIODARONE 450mg/250ml AE 250 ML IV SCH (11:18)
[2023-07-07] MEDS: ONDANSETRON HCL 4 MG/2 ML VIAL IV PRN (13:46)
[2023-07-07 15:22] LABS: Base Excess 6.5 mmol/L (-2.0-2.0)
[2023-07-07] MEDS: MIDAZOLAM DRIP 50 mg/50mL 50 ML IV SCH (21:15)
[2023-07-07] MEDS: ATORVASTATIN 20 MG TAB PO SCH (21:43)
[2023-07-08] VITALS (38 sets, daily range): BP systolic 110–143; BP diastolic 34–83; PULSE 69–87; RESP 10–20; TEMP 99.1–100; O2SAT 89–99
[2023-07-08] MEDS: ALBUTEROL MEDNEB 2.5 mg/3ml NEB NEB SCH ×4 (00:16→19:02)
[2023-07-08] MEDS: IPRATROPIUM BROM 0.5 MG/2.5ML INH SOL NEB SCH ×4 (00:16→19:02)
[2023-07-08] MEDS: NOREPINEPHRINE 8 MG/250ML KIT 250 ML IV SCH (01:30)
[2023-07-08 03:54] LABS: Basophils # (auto) 0.1 10 ^3/uL (0-0.2); Basophils % (auto) 0.9 % (0.0-2.0); Eosinophils # (auto) 0.6 10 ^3/uL (0-0.8); Eosinophils % (auto) 6.3 % (0.0-7.0); Hemoglobin 9.7 g/dL (12.2-16.2); Lymphocytes # (auto) 1.7 10 ^3/uL (0.4-5.4); Lymphocytes % (auto) 19.1 % (10.0-50.0); Mean Corpuscular Hemoglobin 30.1 pg (28.0-32.0); Mean Corpuscular Hgb Conc. 32.5 g/dL (32.0-36.0); Mean Corpuscular Volume 92.7 fL (80.0-100.0); Monocytes # (auto) 1.1 10 ^3/uL (0-1.3); Monocytes % (auto) 12.9 % (0.0-12.0); Neutrophils # (auto) 5.4 10 ^3/uL (1.6-8.6); Neutrophils % (auto) 60.8 % (37.0-80.0); Nucleated Red Blood Cells % 0.1 %; Red Blood Cells 3.23 10^6/uL (4.0-5.20); Red Cell Distribution Width 15.5 % (11.8-14.3); White Blood Cell 8.9 10^3/uL (4.4-10.8)
[2023-07-08] MEDS: fentaNYL Drip 2500mCg/250mlNS 250 ML IV SCH (04:00)
[2023-07-08 04:07] LABS: Alanine Aminotransferase 18 U/L (7-40); Albumin 3.3 g/dL (3.2-4.8); Alkaline Phosphatase 112 U/L (46-116); Anion Gap 6 (5-15); Aspartate Aminotransferase 23 U/L (13-40); BUN/Creatinine Ratio 8.3 (10.0-20.0); Blood Urea Nitrogen 7 mg/dL (9-23); Calcium 8.6 mg/dL (8.7-10.4); Carbon Dioxide 29 mmol/L (20-30); Chloride 101 mmol/L (98-107); Glucose 97 mg/dL (74-106); Potassium 3.8 mmol/L (3.5-5.1); Sodium 136 mmol/L (136-145)
[2023-07-08 04:08] LABS: Bilirubin, Total 0.6 mg/dL (0.2-1.0); Total Protein 6.7 g/dL (5.7-8.2)
[2023-07-08 04:46] LABS: CRP High Sensitivity 1.85 mg/dL (<1.0)
[2023-07-08] MEDS: EMPAGLIFLOZIN 10 MG TAB PO SCH (06:00)
[2023-07-08] MEDS: METOCLOPRAMIDE HCL 5MG/ml INJ 2ml VIAL IV SCH ×3 (06:14→21:17)
[2023-07-08] MEDS: AMIODARONE 450mg/250ml AE 250 ML IV SCH ×2 (06:14→16:55)
[2023-07-08] MEDS: MEROPENEM 1GM IVPB 100 ML IV SCH ×3 (06:14→21:16)
[2023-07-08] MEDS: ONDANSETRON HCL 4 MG/2 ML VIAL IV PRN (07:48)
[2023-07-08] MEDS ORDERED: MAGNESIUM SULFATE 1GM/100ML 100 ML IV ONE (09:30)
[2023-07-08] MEDS ORDERED: CALCIUM GLUC 1,000mg/50ml-NS 50 ML IV ONE (09:30)
[2023-07-08] MEDS: PANTOPRAZOLE 40 MG/10 ML VIAL INJ IV SCH ×2 (09:45→21:16)
[2023-07-08] MEDS: ENOXAPARIN SOD 40 MG/0.4 ML SYRINGE SC SCH (09:46)
[2023-07-08] MEDS: POTASSIUM CHL 20MEQ/100ML 100 ML IV SCH ×4 (09:46→21:16)
[2023-07-08] MEDS: FUROSEMIDE 20 MG/2 ML VIAL IV SCH (09:48)
[2023-07-08] MEDS: SODIUM CHLOR 0.9% PF (SALINE LOCK) 10ML VIAL/SYR IV SCH ×2 (09:48→21:17)
[2023-07-08] MEDS: MAGNESIUM OXIDE 400 MG TAB PO SCH ×2 (10:00→21:18)
[2023-07-08] MEDS: DOXYCYCLINE 100 MG TAB/CAP PO SCH (10:00)
[2023-07-08] MEDS: METOPROLOL TARTRATE 25 MG TAB PO SCH (10:00)
[2023-07-08] MEDS: VANCOMYCIN 750mg/250ml 250 ML IV SCH (11:21)
[2023-07-08] MEDS: METOPROLOL TARTRATE 1MG/1ML-5ML VIAL IV SCH ×2 (13:42→18:05)
[2023-07-08] MEDS: MIDAZOLAM DRIP 50 mg/50mL 50 ML IV SCH (21:15)
[2023-07-08] MEDS: ATORVASTATIN 20 MG TAB PO SCH (21:17)
[2023-07-09] VITALS (33 sets, daily range): BP systolic 110–144; BP diastolic 55–98; PULSE 65–91; RESP 16–26; TEMP 99.5–100.4; O2SAT 81–100
[2023-07-09] MEDS: ALBUTEROL MEDNEB 2.5 mg/3ml NEB NEB SCH ×4 (00:45→19:06)
[2023-07-09] MEDS: IPRATROPIUM BROM 0.5 MG/2.5ML INH SOL NEB SCH ×4 (00:45→19:06)
[2023-07-09] MEDS: NOREPINEPHRINE 8 MG/250ML KIT 250 ML IV SCH (01:30)
[2023-07-09] MEDS: fentaNYL Drip 2500mCg/250mlNS 250 ML IV SCH (04:00)
[2023-07-09 04:32] LABS: Alanine Aminotransferase 16 U/L (7-40); Albumin 3.3 g/dL (3.2-4.8); Alkaline Phosphatase 102 U/L (46-116); Anion Gap 8 (5-15); Aspartate Aminotransferase 22 U/L (13-40); BUN/Creatinine Ratio 7.3 (10.0-20.0); Blood Urea Nitrogen 6 mg/dL (9-23); Calcium 8.7 mg/dL (8.7-10.4); Carbon Dioxide 29 mmol/L (20-30); Chloride 99 mmol/L (98-107); Glucose 100 mg/dL (74-106); Potassium 3.7 mmol/L (3.5-5.1); Sodium 136 mmol/L (136-145)
[2023-07-09 04:33] LABS: Bilirubin, Total 0.6 mg/dL (0.2-1.0); Total Protein 6.5 g/dL (5.7-8.2)
[2023-07-09] MEDS: EMPAGLIFLOZIN 10 MG TAB PO SCH (05:35)
[2023-07-09] MEDS: METOCLOPRAMIDE HCL 5MG/ml INJ 2ml VIAL IV SCH ×3 (05:35→21:45)
[2023-07-09] MEDS: METOPROLOL TARTRATE 1MG/1ML-5ML VIAL IV SCH ×4 (05:47→17:48)
[2023-07-09] MEDS: MEROPENEM 1GM IVPB 100 ML IV SCH (05:47)
[2023-07-09] MEDS: AMIODARONE 450mg/250ml AE 250 ML IV SCH ×2 (05:48→16:10)
[2023-07-09] MEDS ORDERED: ALBUTEROL MEDNEB 2.5 mg/3ml NEB ONE (05:49)
[2023-07-09 09:10] LABS: Basophils # (auto) 0.2 10 ^3/uL (0-0.2); Eosinophils # (auto) 0.5 10 ^3/uL (0-0.8); Eosinophils % (auto) 4.8 % (0.0-7.0); Hematocrit 30.7 % (36.0-46.0); Hemoglobin 9.7 g/dL (12.2-16.2); Lymphocytes % (auto) 20.1 % (10.0-50.0); Mean Corpuscular Hgb Conc. 31.5 g/dL (32.0-36.0); Mean Corpuscular Volume 91.8 fL (80.0-100.0); Monocytes # (auto) 1.2 10 ^3/uL (0-1.3); Monocytes % (auto) 11.8 % (0.0-12.0); Neutrophils # (auto) 6.3 10 ^3/uL (1.6-8.6); Neutrophils % (auto) 61.3 % (37.0-80.0); Red Blood Cells 3.34 10^6/uL (4.0-5.20); Red Cell Distribution Width 15.6 % (11.8-14.3); White Blood Cell 10.2 10^3/uL (4.4-10.8)
[2023-07-09 09:21] LABS: Magnesium 1.8 mg/dL (1.6-2.6)
[2023-07-09] MEDS: MAGNESIUM OXIDE 400 MG TAB PO SCH ×2 (10:00→21:46)
[2023-07-09] MEDS ORDERED: LORazepam 2MG/ML-1ML VIAL IV PRN (10:00)
[2023-07-09] MEDS: SODIUM CHLOR 0.9% PF (SALINE LOCK) 10ML VIAL/SYR IV SCH ×2 (10:03→21:45)
[2023-07-09] MEDS: PANTOPRAZOLE 40 MG/10 ML VIAL INJ IV SCH ×2 (10:03→21:45)
[2023-07-09] MEDS: POTASSIUM CHL 20MEQ/100ML 100 ML IV SCH ×2 (10:03→21:45)
[2023-07-09] MEDS: ENOXAPARIN SOD 40 MG/0.4 ML SYRINGE SC SCH (10:03)
[2023-07-09] MEDS: VANCOMYCIN 750mg/250ml 250 ML IV SCH ×3 (11:51→23:07)
[2023-07-09] MEDS ORDERED: POTASSIUM CHL 20MEQ/100ML 100 ML IV ONE (21:15)
[2023-07-09] MEDS ORDERED: MAGNESIUM SULFATE 1GM/100ML 100 ML IV ONE (21:15)
[2023-07-09] MEDS: MIDAZOLAM DRIP 50 mg/50mL 50 ML IV SCH (21:15)
[2023-07-09] MEDS: ATORVASTATIN 20 MG TAB PO SCH (21:45)
[2023-07-09] MEDS: METOPROLOL TARTRATE 25 MG TAB PO SCH (22:00)
[2023-07-10] VITALS (37 sets, daily range): BP systolic 106–153; BP diastolic 35–83; PULSE 59–108; RESP 14–26; TEMP 98.2–99; O2SAT 88–100
[2023-07-10] MEDS: IPRATROPIUM BROM 0.5 MG/2.5ML INH SOL NEB SCH ×5 (00:33→23:21)
[2023-07-10] MEDS: ALBUTEROL MEDNEB 2.5 mg/3ml NEB NEB SCH ×5 (00:33→23:21)
[2023-07-10] MEDS: NOREPINEPHRINE 8 MG/250ML KIT 250 ML IV SCH (01:30)
[2023-07-10] MEDS: fentaNYL Drip 2500mCg/250mlNS 250 ML IV SCH (04:00)
[2023-07-10 04:42] LABS: Basophils # (auto) 0.1 10 ^3/uL (0-0.2); Basophils % (auto) 0.7 % (0.0-2.0); Eosinophils # (auto) 0.4 10 ^3/uL (0-0.8); Eosinophils % (auto) 4.1 % (0.0-7.0); Hematocrit 32.4 % (36.0-46.0); Hemoglobin 10.6 g/dL (12.2-16.2); Lymphocytes # (auto) 2.2 10 ^3/uL (0.4-5.4); Mean Corpuscular Hemoglobin 29.9 pg (28.0-32.0); Mean Corpuscular Hgb Conc. 32.7 g/dL (32.0-36.0); Mean Corpuscular Volume 91.5 fL (80.0-100.0); Monocytes # (auto) 1.3 10 ^3/uL (0-1.3); Monocytes % (auto) 12.4 % (0.0-12.0); Neutrophils # (auto) 6.4 10 ^3/uL (1.6-8.6); Neutrophils % (auto) 61.8 % (37.0-80.0); Red Blood Cells 3.54 10^6/uL (4.0-5.20); Red Cell Distribution Width 15.5 % (11.8-14.3); White Blood Cell 10.4 10^3/uL (4.4-10.8)
[2023-07-10 05:14] LABS: Alanine Aminotransferase 16 U/L (7-40); Albumin 3.3 g/dL (3.2-4.8); Alkaline Phosphatase 105 U/L (46-116); Anion Gap 7 (5-15); Aspartate Aminotransferase 21 U/L (13-40); BUN/Creatinine Ratio 7.6 (10.0-20.0); Bilirubin, Total 0.5 mg/dL (0.2-1.0); Blood Urea Nitrogen 6 mg/dL (9-23); Calcium 8.8 mg/dL (8.5-10.1); Carbon Dioxide 27 mmol/L (20-30); Chloride 105 mmol/L (98-107); Glucose 99 mg/dL (74-106); Potassium 3.7 mmol/L (3.5-5.1); Sodium 139 mmol/L (136-145); Total Protein 6.6 g/dL (5.7-8.2)
[2023-07-10 05:23] LABS: CRP High Sensitivity 1.81 mg/dL (<1.0)
[2023-07-10 05:49] LABS: Magnesium 2.1 mg/dL (1.6-2.6)
[2023-07-10] MEDS: METOCLOPRAMIDE HCL 5MG/ml INJ 2ml VIAL IV SCH ×3 (06:00→21:57)
[2023-07-10] MEDS: AMIODARONE 450mg/250ml AE 250 ML IV SCH ×2 (06:14→17:39)
[2023-07-10] MEDS: EMPAGLIFLOZIN 10 MG TAB PO SCH (06:35)
[2023-07-10] MEDS: PANTOPRAZOLE 40 MG/10 ML VIAL INJ IV SCH ×2 (09:46→21:57)
[2023-07-10] MEDS: MAGNESIUM OXIDE 400 MG TAB PO SCH ×2 (09:47→21:54)
[2023-07-10] MEDS: POTASSIUM CHL 20MEQ/100ML 100 ML IV SCH ×2 (09:48→21:57)
[2023-07-10] MEDS: ENOXAPARIN SOD 40 MG/0.4 ML SYRINGE SC SCH (09:48)
[2023-07-10] MEDS: SODIUM CHLOR 0.9% PF (SALINE LOCK) 10ML VIAL/SYR IV SCH ×2 (09:49→21:57)
[2023-07-10] MEDS: METOPROLOL TARTRATE 25 MG TAB PO SCH ×2 (10:15→21:54)
[2023-07-10] MEDS ORDERED: CLINIMIX PER PHARMACY 0 ML IV SCH (11:00)
[2023-07-10] MEDS: VANCOMYCIN 750mg/250ml 250 ML IV SCH ×2 (12:04→23:16)
[2023-07-10] MEDS ORDERED: SODIUM PHOSPHATES 20 MEQ in SODIUM CHL 0.9% 100 ML IV ONE (15:00)
[2023-07-10] MEDS: AMINO ACID INFUSION IN D10W 1,000 ML IV NR (19:49)
[2023-07-10] MEDS: TEMAZEPAM 15 MG CAP PO PRN (19:49)
[2023-07-10] MEDS ORDERED: DEXTROSE (50%) 50ML SYRG IV SCH (20:00)
[2023-07-10] MEDS: LORazepam 2MG/ML-1ML VIAL IV PRN (20:30)
[2023-07-10] MEDS: MIDAZOLAM DRIP 50 mg/50mL 50 ML IV SCH (21:15)
[2023-07-10] MEDS: ATORVASTATIN 20 MG TAB PO SCH (21:54)
[2023-07-11] VITALS (34 sets, daily range): BP systolic 113–153; BP diastolic 59–88; PULSE 1–94; RESP 11–29; TEMP 97.7–99; O2SAT 93–100
[2023-07-11] MEDS: ACCU-CHEK COMFORT CURVE STRIP VI SCH ×4 (00:32→17:53)
[2023-07-11] MEDS: InsuLIN REG 1unit/0.01ml Soln (100units/ml) SC SCH ×4 (00:34→17:54)
[2023-07-11] MEDS: NOREPINEPHRINE 8 MG/250ML KIT 250 ML IV SCH (01:30)
[2023-07-11] MEDS: LORazepam 2MG/ML-1ML VIAL IV PRN (03:05)
[2023-07-11] MEDS: fentaNYL Drip 2500mCg/250mlNS 250 ML IV SCH (04:00)
[2023-07-11] MEDS: EMPAGLIFLOZIN 10 MG TAB PO SCH ×2 (05:33→09:57)
[2023-07-11] MEDS: METOCLOPRAMIDE HCL 5MG/ml INJ 2ml VIAL IV SCH ×3 (05:56→23:12)
[2023-07-11] MEDS: ALBUTEROL MEDNEB 2.5 mg/3ml NEB NEB SCH ×3 (07:08→19:50)
[2023-07-11] MEDS: IPRATROPIUM BROM 0.5 MG/2.5ML INH SOL NEB SCH ×3 (07:08→19:50)
[2023-07-11] MEDS: AMIODARONE 450mg/250ml AE 250 ML IV SCH ×2 (08:31→21:03)
[2023-07-11 08:53] LABS: Basophils # (auto) 0.2 10 ^3/uL (0-0.2); Basophils % (auto) 1.3 % (0.0-2.0); Eosinophils # (auto) 0.5 10 ^3/uL (0-0.8); Eosinophils % (auto) 3.9 % (0.0-7.0); Hematocrit 32.7 % (36.0-46.0); Hemoglobin 10.2 g/dL (12.2-16.2); Lymphocytes % (auto) 14.6 % (10.0-50.0); Mean Corpuscular Hemoglobin 28.9 pg (28.0-32.0); Mean Corpuscular Hgb Conc. 31.3 g/dL (32.0-36.0); Mean Corpuscular Volume 92.2 fL (80.0-100.0); Monocytes # (auto) 1.5 10 ^3/uL (0-1.3); Monocytes % (auto) 11.3 % (0.0-12.0); Neutrophils # (auto) 9.3 10 ^3/uL (1.6-8.6); Neutrophils % (auto) 68.9 % (37.0-80.0); Nucleated Red Blood Cells % 0.1 %; Red Blood Cells 3.55 10^6/uL (4.0-5.20); Red Cell Distribution Width 15.9 % (11.8-14.3); White Blood Cell 13.5 10^3/uL (4.4-10.8)
[2023-07-11 09:00] LABS: Alanine Aminotransferase 13 U/L (7-40); Albumin 2.8 g/dL (3.2-4.8); Alkaline Phosphatase 84 U/L (46-116); Anion Gap 7 (5-15); Aspartate Aminotransferase 31 U/L (13-40); BUN/Creatinine Ratio 10.2 (10.0-20.0); Bilirubin, Total 0.4 mg/dL (0.2-1.0); Blood Urea Nitrogen 6 mg/dL (9-23); Calcium 7.3 mg/dL (8.5-10.1); Carbon Dioxide 26 mmol/L (20-30); Chloride 106 mmol/L (98-107); Glucose 106 mg/dL (74-106); Phosphorus 1.5 mg/dL (2.4-5.1); Potassium 3.7 mmol/L (3.5-5.1); Sodium 139 mmol/L (136-145)
[2023-07-11 09:01] LABS: Total Protein 5.4 g/dL (5.7-8.2)
[2023-07-11] MEDS: MAGNESIUM OXIDE 400 MG TAB PO SCH ×2 (09:58→23:13)
[2023-07-11] MEDS: LISINOPRIL 5 MG TAB PO SCH (10:02)
[2023-07-11] MEDS: METOPROLOL TARTRATE 25 MG TAB PO SCH ×2 (10:03→23:18)
[2023-07-11] MEDS: PANTOPRAZOLE 40 MG/10 ML VIAL INJ IV SCH ×2 (10:04→23:12)
[2023-07-11] MEDS: SODIUM CHLOR 0.9% PF (SALINE LOCK) 10ML VIAL/SYR IV SCH ×2 (10:13→23:39)
[2023-07-11] MEDS: SPIRONOLACTONE 25 MG TAB PO SCH (10:13)
[2023-07-11] MEDS: ENOXAPARIN SOD 40 MG/0.4 ML SYRINGE SC SCH (10:15)
[2023-07-11 10:36] LABS: Magnesium 1.6 mg/dL (1.6-2.6)
[2023-07-11] MEDS: VANCOMYCIN 750mg/250ml 250 ML IV SCH ×2 (12:05→23:12)
[2023-07-11] MEDS: POTASSIUM CHL 20MEQ/100ML 100 ML IV SCH ×2 (14:27→23:39)
[2023-07-11] MEDS: MAGNESIUM SULFATE 1GM/100ML 100 ML IV SCH ×2 (14:33→15:45)
[2023-07-11] MEDS ORDERED: SODIUM PHOSPHATES 40 MEQ in D5W 5% 250 ML IV ONE (16:00)
[2023-07-11] MEDS ORDERED: CALCIUM GLUC 1,000mg/50ml-NS 50 ML IV ONE (16:00)
[2023-07-11] MEDS: NYSTATIN (MOUTH-THROAT) 500,000 UNITS/5 ML SUSP MT SCH ×2 (17:56→22:00)
[2023-07-11] MEDS: AMINO ACID INFUSION IN D10W 1,000 ML IV NR (21:03)
[2023-07-11] MEDS: MIDAZOLAM DRIP 50 mg/50mL 50 ML IV SCH (21:15)
[2023-07-11] MEDS: ATORVASTATIN 20 MG TAB PO SCH (23:12)
[2023-07-12] VITALS (22 sets, daily range): BP systolic 101–149; BP diastolic 37–74; PULSE 66–87; RESP 18–29; TEMP 98.6–99.5; O2SAT 94–100
[2023-07-12] MEDS: ALBUTEROL MEDNEB 2.5 mg/3ml NEB NEB SCH ×5 (00:08→23:47)
[2023-07-12] MEDS: IPRATROPIUM BROM 0.5 MG/2.5ML INH SOL NEB SCH ×5 (00:08→23:47)
[2023-07-12 04:59] LABS: Basophils # (auto) 0.1 10 ^3/uL (0-0.2); Basophils % (auto) 0.7 % (0.0-2.0); Eosinophils # (auto) 0.4 10 ^3/uL (0-0.8); Eosinophils % (auto) 2.4 % (0.0-7.0); Hematocrit 31.6 % (36.0-46.0); Hemoglobin 10.2 g/dL (12.2-16.2); Lymphocytes # (auto) 1.8 10 ^3/uL (0.4-5.4); Lymphocytes % (auto) 9.4 % (10.0-50.0); Mean Corpuscular Hemoglobin 29.3 pg (28.0-32.0); Mean Corpuscular Hgb Conc. 32.1 g/dL (32.0-36.0); Mean Corpuscular Volume 91.2 fL (80.0-100.0); Monocytes # (auto) 1.7 10 ^3/uL (0-1.3); Monocytes % (auto) 9.3 % (0.0-12.0); Neutrophils # (auto) 14.7 10 ^3/uL (1.6-8.6); Neutrophils % (auto) 78.2 % (37.0-80.0); Red Blood Cells 3.47 10^6/uL (4.0-5.20); White Blood Cell 18.7 10^3/uL (4.4-10.8)
[2023-07-12 05:14] LABS: Alanine Aminotransferase 13 U/L (7-40); Albumin 3.4 g/dL (3.2-4.8); Alkaline Phosphatase 98 U/L (46-116); Anion Gap 8 (5-15); Aspartate Aminotransferase 19 U/L (13-40); Bilirubin, Total 0.6 mg/dL (0.2-1.0); Blood Urea Nitrogen 8 mg/dL (9-23); Calcium 8.2 mg/dL (8.7-10.4); Carbon Dioxide 25 mmol/L (20-30); Chloride 104 mmol/L (98-107); Glucose 126 mg/dL (74-106); Magnesium 1.9 mg/dL (1.6-2.6); Phosphorus 3.4 mg/dL (2.4-5.1); Potassium 3.3 mmol/L (3.5-5.1); Sodium 137 mmol/L (136-145); Total Protein 6.6 g/dL (5.7-8.2)
[2023-07-12] MEDS: ACCU-CHEK COMFORT CURVE STRIP VI SCH ×2 (06:00)
[2023-07-12] MEDS: InsuLIN REG 1unit/0.01ml Soln (100units/ml) SC SCH ×2 (06:00)
[2023-07-12] MEDS: SODIUM CHLOR 0.9% PF (SALINE LOCK) 10ML VIAL/SYR IV SCH ×2 (07:42→21:37)
[2023-07-12] MEDS: NYSTATIN (MOUTH-THROAT) 500,000 UNITS/5 ML SUSP MT SCH ×4 (08:07→21:37)
[2023-07-12] MEDS: METOCLOPRAMIDE HCL 5MG/ml INJ 2ml VIAL IV SCH ×3 (08:08→21:37)
[2023-07-12] MEDS: ENOXAPARIN SOD 40 MG/0.4 ML SYRINGE SC SCH (08:26)
[2023-07-12] MEDS: PANTOPRAZOLE 40 MG/10 ML VIAL INJ IV SCH ×2 (08:26→21:37)
[2023-07-12] MEDS: POTASSIUM CHL 20MEQ/100ML 100 ML IV SCH ×2 (08:46→21:39)
[2023-07-12] MEDS: METOPROLOL TARTRATE 25 MG TAB PO SCH ×2 (08:47→21:38)
[2023-07-12] MEDS: MAGNESIUM OXIDE 400 MG TAB PO SCH ×2 (08:47→21:37)
[2023-07-12] MEDS: SPIRONOLACTONE 25 MG TAB PO SCH (08:47)
[2023-07-12] MEDS: LISINOPRIL 5 MG TAB PO SCH (08:47)
[2023-07-12] MEDS: MIDAZOLAM DRIP 50 mg/50mL 50 ML IV SCH (10:37)
[2023-07-12] MEDS: AMIODARONE HCL 200 MG TAB PO SCH ×2 (10:50→21:39)
[2023-07-12] MEDS: VANCOMYCIN 750mg/250ml 250 ML IV SCH ×2 (10:51→23:42)
[2023-07-12] MEDS: Ensure Enlive Strawberry 8oz Bottle PO SCH (18:00)
[2023-07-12] MEDS: ATORVASTATIN 20 MG TAB PO SCH (21:37)
[2023-07-13] VITALS (34 sets, daily range): BP systolic 98–133; BP diastolic 41–80; PULSE 68–95; RESP 17–30; TEMP 97.6–98.7; O2SAT 92–100
[2023-07-13 05:44] LABS: Basophils # (auto) 0.1 10 ^3/uL (0-0.2); Basophils % (auto) 0.5 % (0.0-2.0); Eosinophils # (auto) 0.5 10 ^3/uL (0-0.8); Eosinophils % (auto) 2.7 % (0.0-7.0); Hematocrit 32.9 % (36.0-46.0); Hemoglobin 10.3 g/dL (12.2-16.2); Lymphocytes # (auto) 2.2 10 ^3/uL (0.4-5.4); Lymphocytes % (auto) 11.5 % (10.0-50.0); Mean Corpuscular Hemoglobin 29.1 pg (28.0-32.0); Mean Corpuscular Hgb Conc. 31.3 g/dL (32.0-36.0); Monocytes # (auto) 1.8 10 ^3/uL (0-1.3); Monocytes % (auto) 9.3 % (0.0-12.0); Neutrophils # (auto) 14.6 10 ^3/uL (1.6-8.6); Red Blood Cells 3.54 10^6/uL (4.0-5.20); Red Cell Distribution Width 15.2 % (11.8-14.3); White Blood Cell 19.2 10^3/uL (4.4-10.8)
[2023-07-13 05:58] LABS: Chloride 106 mmol/L (98-107); Potassium 3.8 mmol/L (3.5-5.1); Sodium 137 mmol/L (136-145)
[2023-07-13 05:59] LABS: Anion Gap 8 (5-15); Calcium 8.3 mg/dL (8.7-10.4); Carbon Dioxide 23 mmol/L (20-30)
[2023-07-13 06:04] LABS: BUN/Creatinine Ratio 10.5 (10.0-20.0); Blood Urea Nitrogen 9 mg/dL (9-23); Glucose 111 mg/dL (74-106); Magnesium 1.9 mg/dL (1.6-2.6)
[2023-07-13] MEDS: METOCLOPRAMIDE HCL 5MG/ml INJ 2ml VIAL IV SCH ×3 (06:35→22:08)
[2023-07-13] MEDS: EMPAGLIFLOZIN 10 MG TAB PO SCH (06:35)
[2023-07-13] MEDS: NYSTATIN (MOUTH-THROAT) 500,000 UNITS/5 ML SUSP MT SCH ×4 (06:35→22:08)
[2023-07-13] MEDS: IPRATROPIUM BROM 0.5 MG/2.5ML INH SOL NEB SCH ×3 (06:48→18:51)
[2023-07-13] MEDS: ALBUTEROL MEDNEB 2.5 mg/3ml NEB NEB SCH ×3 (06:48→18:52)
[2023-07-13] MEDS: PANTOPRAZOLE 40 MG/10 ML VIAL INJ IV SCH ×2 (08:49→22:08)
[2023-07-13] MEDS: POTASSIUM CHL 20MEQ/100ML 100 ML IV SCH ×2 (08:49→22:07)
[2023-07-13] MEDS: ENOXAPARIN SOD 40 MG/0.4 ML SYRINGE SC SCH (08:49)
[2023-07-13] MEDS: Ensure Enlive Strawberry 8oz Bottle PO SCH ×3 (09:41→18:59)
[2023-07-13] MEDS: SODIUM CHLOR 0.9% PF (SALINE LOCK) 10ML VIAL/SYR IV SCH ×2 (09:42→22:09)
[2023-07-13] MEDS: LISINOPRIL 5 MG TAB PO SCH (09:43)
[2023-07-13] MEDS: AMIODARONE HCL 200 MG TAB PO SCH ×2 (09:43→22:07)
[2023-07-13] MEDS: MAGNESIUM OXIDE 400 MG TAB PO SCH ×2 (09:43→22:07)
[2023-07-13] MEDS: METOPROLOL TARTRATE 25 MG TAB PO SCH ×2 (09:43→22:08)
[2023-07-13] MEDS: SPIRONOLACTONE 25 MG TAB PO SCH (09:44)
[2023-07-13] MEDS: VANCOMYCIN 750mg/250ml 250 ML IV SCH ×2 (12:00→23:20)
[2023-07-13] MEDS: MIDAZOLAM DRIP 50 mg/50mL 50 ML IV SCH (21:15)
[2023-07-13] MEDS: ATORVASTATIN 20 MG TAB PO SCH (22:08)
[2023-07-14] VITALS (22 sets, daily range): BP systolic 102–128; BP diastolic 50–69; PULSE 60–79; RESP 18–27; TEMP 98.2–98.9; O2SAT 92–100
[2023-07-14] MEDS: IPRATROPIUM BROM 0.5 MG/2.5ML INH SOL NEB SCH ×4 (00:27→18:40)
[2023-07-14] MEDS: ALBUTEROL MEDNEB 2.5 mg/3ml NEB NEB SCH ×4 (00:27→18:40)
[2023-07-14 05:40] LABS: Basophils # (auto) 0.1 10 ^3/uL (0-0.2); Basophils % (auto) 0.5 % (0.0-2.0); Eosinophils # (auto) 0.6 10 ^3/uL (0-0.8); Eosinophils % (auto) 4.4 % (0.0-7.0); Hemoglobin 9.6 g/dL (12.2-16.2); Lymphocytes # (auto) 1.9 10 ^3/uL (0.4-5.4); Lymphocytes % (auto) 14.7 % (10.0-50.0); Mean Corpuscular Hemoglobin 30.7 pg (28.0-32.0); Mean Corpuscular Hgb Conc. 33.2 g/dL (32.0-36.0); Mean Corpuscular Volume 92.3 fL (80.0-100.0); Monocytes # (auto) 1.3 10 ^3/uL (0-1.3); Monocytes % (auto) 10.3 % (0.0-12.0); Neutrophils # (auto) 9.1 10 ^3/uL (1.6-8.6); Neutrophils % (auto) 70.1 % (37.0-80.0); Red Blood Cells 3.14 10^6/uL (4.0-5.20); Red Cell Distribution Width 15.5 % (11.8-14.3)
[2023-07-14 06:03] LABS: Calcium 8.6 mg/dL (8.7-10.4); Chloride 108 mmol/L (98-107); Potassium 3.8 mmol/L (3.5-5.1); Sodium 139 mmol/L (136-145)
[2023-07-14 06:04] LABS: Anion Gap 6 (5-15); Carbon Dioxide 25 mmol/L (20-30)
[2023-07-14 06:09] LABS: BUN/Creatinine Ratio 10.8 (10.0-20.0); Blood Urea Nitrogen 9 mg/dL (9-23); Glucose 106 mg/dL (74-106)
[2023-07-14] MEDS: NYSTATIN (MOUTH-THROAT) 500,000 UNITS/5 ML SUSP MT SCH ×4 (06:35→22:23)
[2023-07-14] MEDS: METOCLOPRAMIDE HCL 5MG/ml INJ 2ml VIAL IV SCH ×3 (06:35→22:23)
[2023-07-14] MEDS: EMPAGLIFLOZIN 10 MG TAB PO SCH (06:35)
[2023-07-14] MEDS: PANTOPRAZOLE 40 MG/10 ML VIAL INJ IV SCH ×2 (09:19→22:23)
[2023-07-14] MEDS: ENOXAPARIN SOD 40 MG/0.4 ML SYRINGE SC SCH (09:19)
[2023-07-14] MEDS: MAGNESIUM OXIDE 400 MG TAB PO SCH ×2 (09:20→22:25)
[2023-07-14] MEDS: SODIUM CHLOR 0.9% PF (SALINE LOCK) 10ML VIAL/SYR IV SCH ×2 (09:20→22:23)
[2023-07-14] MEDS: AMIODARONE HCL 200 MG TAB PO SCH ×2 (09:20→22:24)
[2023-07-14] MEDS: SPIRONOLACTONE 25 MG TAB PO SCH (09:20)
[2023-07-14] MEDS: METOPROLOL TARTRATE 25 MG TAB PO SCH ×2 (09:21→22:25)
[2023-07-14] MEDS: levoFLOXacin 500 MG TAB PO SCH (09:21)
[2023-07-14] MEDS: POTASSIUM CHL 20MEQ/100ML 100 ML IV SCH (09:22)
[2023-07-14] MEDS: Ensure Enlive Strawberry 8oz Bottle PO SCH ×3 (09:27→17:29)
[2023-07-14] MEDS: LISINOPRIL 5 MG TAB PO SCH (10:00)
[2023-07-14] MEDS: VANCOMYCIN 750mg/250ml 250 ML IV SCH ×2 (10:52→23:36)
[2023-07-14] MEDS: MIDAZOLAM DRIP 50 mg/50mL 50 ML IV SCH (21:15)
[2023-07-14] MEDS: POTASSIUM EFFERVESENT TAB 25 MEQ GT SCH (22:24)
[2023-07-14] MEDS: ATORVASTATIN 20 MG TAB PO SCH (22:25)
[2023-07-14] MEDS ORDERED: VANCOMYCIN 1GM/200ML 250 ML IV ONE (23:22)
[2023-07-15] VITALS (20 sets, daily range): BP systolic 115–131; BP diastolic 54–79; PULSE 69–86; RESP 16–25; TEMP 98.2–99.1; O2SAT 82–100
[2023-07-15] MEDS: ALBUTEROL MEDNEB 2.5 mg/3ml NEB NEB SCH ×5 (00:06→23:30)
[2023-07-15] MEDS: IPRATROPIUM BROM 0.5 MG/2.5ML INH SOL NEB SCH ×4 (00:06→18:41)
[2023-07-15] MEDS: METOCLOPRAMIDE HCL 5MG/ml INJ 2ml VIAL IV SCH ×3 (06:38→23:43)
[2023-07-15] MEDS: EMPAGLIFLOZIN 10 MG TAB PO SCH (06:38)
[2023-07-15] MEDS: NYSTATIN (MOUTH-THROAT) 500,000 UNITS/5 ML SUSP MT SCH ×4 (06:39→23:43)
[2023-07-15] MEDS: Ensure Enlive Strawberry 8oz Bottle PO SCH ×3 (09:20→18:42)
[2023-07-15] MEDS: levoFLOXacin 500 MG TAB PO SCH (09:20)
[2023-07-15] MEDS: ENOXAPARIN SOD 40 MG/0.4 ML SYRINGE SC SCH (09:20)
[2023-07-15] MEDS: POTASSIUM EFFERVESENT TAB 25 MEQ GT SCH ×2 (09:20→22:00)
[2023-07-15] MEDS: FUROSEMIDE 20 MG TAB PO SCH (09:21)
[2023-07-15] MEDS: LISINOPRIL 5 MG TAB PO SCH (09:21)
[2023-07-15] MEDS: AMIODARONE HCL 200 MG TAB PO SCH ×2 (09:22→23:43)
[2023-07-15] MEDS: METOPROLOL TARTRATE 25 MG TAB PO SCH ×2 (09:22→23:44)
[2023-07-15] MEDS: SPIRONOLACTONE 25 MG TAB PO SCH (09:22)
[2023-07-15] MEDS: MAGNESIUM OXIDE 400 MG TAB PO SCH ×2 (09:22→23:44)
[2023-07-15] MEDS: SODIUM CHLOR 0.9% PF (SALINE LOCK) 10ML VIAL/SYR IV SCH ×2 (09:22→23:43)
[2023-07-15] MEDS: PANTOPRAZOLE 40 MG/10 ML VIAL INJ IV SCH ×2 (09:23→23:43)
[2023-07-15 10:36] LABS: Basophils # (auto) 0.1 10 ^3/uL (0-0.2); Eosinophils # (auto) 0.4 10 ^3/uL (0-0.8); Eosinophils % (auto) 3.5 % (0.0-7.0); Hematocrit 30.7 % (36.0-46.0); Hemoglobin 9.9 g/dL (12.2-16.2); Lymphocytes # (auto) 1.9 10 ^3/uL (0.4-5.4); Lymphocytes % (auto) 16.3 % (10.0-50.0); Mean Corpuscular Hemoglobin 29.8 pg (28.0-32.0); Mean Corpuscular Hgb Conc. 32.4 g/dL (32.0-36.0); Mean Corpuscular Volume 91.9 fL (80.0-100.0); Monocytes # (auto) 1.1 10 ^3/uL (0-1.3); Monocytes % (auto) 9.2 % (0.0-12.0); Neutrophils # (auto) 8.2 10 ^3/uL (1.6-8.6); Nucleated Red Blood Cells % 0.1 %; Red Blood Cells 3.34 10^6/uL (4.0-5.20); Red Cell Distribution Width 14.6 % (11.8-14.3); White Blood Cell 11.7 10^3/uL (4.4-10.8)
[2023-07-15 10:37] LABS: Chloride 106 mmol/L (98-107); Potassium 4.1 mmol/L (3.5-5.1); Sodium 139 mmol/L (136-145)
[2023-07-15 10:38] LABS: Anion Gap 8 (5-15); Carbon Dioxide 25 mmol/L (20-30)
[2023-07-15 10:43] LABS: BUN/Creatinine Ratio 18.4 (10.0-20.0); Blood Urea Nitrogen 16 mg/dL (9-23); Glucose 144 mg/dL (74-106)
[2023-07-15] MEDS: VANCOMYCIN 750mg/250ml 250 ML IV SCH ×2 (11:11→23:00)
[2023-07-15] MEDS: MIDAZOLAM DRIP 50 mg/50mL 50 ML IV SCH (20:09)
[2023-07-15] MEDS: ATORVASTATIN 20 MG TAB PO SCH (23:43)
[2023-07-16] VITALS (12 sets, daily range): BP systolic 65–124; BP diastolic 55–73; PULSE 69–86; RESP 17–20; TEMP 98.1–98.9; O2SAT 92–99
[2023-07-16] MEDS: TEMAZEPAM 15 MG CAP PO PRN (00:20)
[2023-07-16 05:09] LABS: Calcium 9.2 mg/dL (8.5-10.1); Chloride 104 mmol/L (98-107); Potassium 3.7 mmol/L (3.5-5.1); Sodium 139 mmol/L (136-145)
[2023-07-16 05:10] LABS: Anion Gap 8 (5-15); Carbon Dioxide 27 mmol/L (20-30)
[2023-07-16 05:15] LABS: BUN/Creatinine Ratio 15.8 (10.0-20.0); Blood Urea Nitrogen 15 mg/dL (9-23); Glucose 110 mg/dL (74-106)
[2023-07-16 05:33] LABS: Basophils # (auto) 0.1 10 ^3/uL (0-0.2); Basophils % (auto) 0.9 % (0.0-2.0); Eosinophils # (auto) 0.5 10 ^3/uL (0-0.8); Eosinophils % (auto) 6.1 % (0.0-7.0); Hematocrit 29.9 % (36.0-46.0); Hemoglobin 9.9 g/dL (12.2-16.2); Lymphocytes # (auto) 1.7 10 ^3/uL (0.4-5.4); Lymphocytes % (auto) 20.3 % (10.0-50.0); Mean Corpuscular Hemoglobin 30.2 pg (28.0-32.0); Mean Corpuscular Volume 91.4 fL (80.0-100.0); Monocytes % (auto) 12.4 % (0.0-12.0); Neutrophils # (auto) 5.1 10 ^3/uL (1.6-8.6); Neutrophils % (auto) 60.3 % (37.0-80.0); Red Blood Cells 3.27 10^6/uL (4.0-5.20); Red Cell Distribution Width 14.7 % (11.8-14.3); White Blood Cell 8.4 10^3/uL (4.4-10.8)
[2023-07-16] MEDS: NYSTATIN (MOUTH-THROAT) 500,000 UNITS/5 ML SUSP MT SCH ×4 (06:46→22:50)
[2023-07-16] MEDS: METOCLOPRAMIDE HCL 5MG/ml INJ 2ml VIAL IV SCH ×3 (06:46→22:00)
[2023-07-16] MEDS: EMPAGLIFLOZIN 10 MG TAB PO SCH (06:47)
[2023-07-16] MEDS: ALBUTEROL MEDNEB 2.5 mg/3ml NEB NEB SCH ×3 (07:25→18:29)
[2023-07-16] MEDS: IPRATROPIUM BROM 0.5 MG/2.5ML INH SOL NEB SCH ×4 (07:25→18:29)
[2023-07-16] MEDS: Ensure Enlive Strawberry 8oz Bottle PO SCH ×3 (08:00→18:00)
[2023-07-16] MEDS: PANTOPRAZOLE 40 MG/10 ML VIAL INJ IV SCH ×2 (10:31→22:51)
[2023-07-16] MEDS: SPIRONOLACTONE 25 MG TAB PO SCH (10:32)
[2023-07-16] MEDS: ENOXAPARIN SOD 40 MG/0.4 ML SYRINGE SC SCH (10:32)
[2023-07-16] MEDS: levoFLOXacin 500 MG TAB PO SCH (10:32)
[2023-07-16] MEDS: AMIODARONE HCL 200 MG TAB PO SCH ×2 (10:33→22:54)
[2023-07-16] MEDS: MAGNESIUM OXIDE 400 MG TAB PO SCH ×2 (10:33→22:54)
[2023-07-16] MEDS: FLUCONAZOLE 100 MG TAB PO SCH (10:33)
[2023-07-16] MEDS: LISINOPRIL 5 MG TAB PO SCH (10:34)
[2023-07-16] MEDS: METOPROLOL TARTRATE 25 MG TAB PO SCH ×2 (10:34→22:53)
[2023-07-16] MEDS: FUROSEMIDE 20 MG TAB PO SCH (10:34)
[2023-07-16] MEDS: SODIUM CHLOR 0.9% PF (SALINE LOCK) 10ML VIAL/SYR IV SCH ×2 (10:35→22:51)
[2023-07-16] MEDS: POTASSIUM EFFERVESENT TAB 25 MEQ PO SCH ×2 (10:42→22:49)
[2023-07-16] MEDS: VANCOMYCIN 750mg/250ml 250 ML IV SCH ×3 (11:47→22:55)
[2023-07-16] MEDS: ATORVASTATIN 20 MG TAB PO SCH (22:53)
[2023-07-17] VITALS (10 sets, daily range): BP systolic 100–118; BP diastolic 54–74; PULSE 70–86; RESP 18–19; TEMP 98.1–98.3; O2SAT 88–99
[2023-07-17] MEDS: IPRATROPIUM BROM 0.5 MG/2.5ML INH SOL NEB SCH ×3 (00:09→13:54)
[2023-07-17] MEDS: ALBUTEROL MEDNEB 2.5 mg/3ml NEB NEB SCH ×3 (00:10→13:54)
[2023-07-17] MEDS: NYSTATIN (MOUTH-THROAT) 500,000 UNITS/5 ML SUSP MT SCH ×2 (06:25→11:06)
[2023-07-17] MEDS: METOCLOPRAMIDE HCL 5MG/ml INJ 2ml VIAL IV SCH (06:25)
[2023-07-17] MEDS: EMPAGLIFLOZIN 10 MG TAB PO SCH (06:26)
[2023-07-17 07:24] LABS: Basophils # (auto) 0.1 10 ^3/uL (0-0.2); Eosinophils # (auto) 0.6 10 ^3/uL (0-0.8); Eosinophils % (auto) 7.5 % (0.0-7.0); Hematocrit 31.6 % (36.0-46.0); Lymphocytes # (auto) 1.6 10 ^3/uL (0.4-5.4); Lymphocytes % (auto) 20.9 % (10.0-50.0); Mean Corpuscular Hemoglobin 29.2 pg (28.0-32.0); Mean Corpuscular Hgb Conc. 31.8 g/dL (32.0-36.0); Mean Corpuscular Volume 91.9 fL (80.0-100.0); Monocytes # (auto) 0.9 10 ^3/uL (0-1.3); Monocytes % (auto) 11.1 % (0.0-12.0); Neutrophils # (auto) 4.6 10 ^3/uL (1.6-8.6); Neutrophils % (auto) 59.5 % (37.0-80.0); Red Blood Cells 3.44 10^6/uL (4.0-5.20); White Blood Cell 7.7 10^3/uL (4.4-10.8)
[2023-07-17 07:26] LABS: Chloride 104 mmol/L (98-107); Potassium 3.7 mmol/L (3.5-5.1); Sodium 139 mmol/L (136-145)
[2023-07-17 07:27] LABS: Anion Gap 9 (5-15); Calcium 9.2 mg/dL (8.5-10.1); Carbon Dioxide 26 mmol/L (20-30)
[2023-07-17 07:32] LABS: BUN/Creatinine Ratio 16.8 (10.0-20.0); Blood Urea Nitrogen 16 mg/dL (9-23); Glucose 111 mg/dL (74-106)
[2023-07-17] MEDS: Ensure Enlive Strawberry 8oz Bottle PO SCH ×2 (08:10→12:06)
[2023-07-17] MEDS: SODIUM CHLOR 0.9% PF (SALINE LOCK) 10ML VIAL/SYR IV SCH (09:03)
[2023-07-17] MEDS: PANTOPRAZOLE 40 MG/10 ML VIAL INJ IV SCH (09:03)
[2023-07-17] MEDS: SPIRONOLACTONE 25 MG TAB PO SCH (09:09)
[2023-07-17] MEDS: levoFLOXacin 500 MG TAB PO SCH (09:09)
[2023-07-17] MEDS: LISINOPRIL 5 MG TAB PO SCH (09:12)
[2023-07-17] MEDS: MAGNESIUM OXIDE 400 MG TAB PO SCH (09:12)
[2023-07-17] MEDS: FUROSEMIDE 20 MG TAB PO SCH (09:12)
[2023-07-17] MEDS: METOPROLOL TARTRATE 25 MG TAB PO SCH (09:13)
[2023-07-17] MEDS: AMIODARONE HCL 200 MG TAB PO SCH (09:16)
[2023-07-17] MEDS: FLUCONAZOLE 100 MG TAB PO SCH (09:17)
[2023-07-17] MEDS: ENOXAPARIN SOD 40 MG/0.4 ML SYRINGE SC SCH (09:18)
[2023-07-17] MEDS: POTASSIUM EFFERVESENT TAB 25 MEQ PO SCH (09:26)
[2023-07-17] MEDS: VANCOMYCIN 750mg/250ml 250 ML IV SCH (11:06)
[2023-07-17] MEDS ORDERED: FUR20T PO (11:44)
[2023-07-17] MEDS ORDERED: SPIR25TA PO (11:44)
[2023-07-17] MEDS ORDERED: EMPA1TAB PO (11:44)
[2023-07-17] MEDS ORDERED: LISI-275 PO (11:44)
[2023-07-17] MEDS ORDERED: MET25T PO (11:44)
[2023-07-17] MEDS ORDERED: AMIO200T33 PO (11:51)
[2023-07-17] MEDS ORDERED: DOXY-448 PO (11:51)
== END 2023-07-17 17:17 | disposition home or self-care (01) | DRG 179 ==
LOC: ER 01:23 → EDBD 01:23 → TELE 05:59 → ICU WEST 10:32 → DOU IN ICU 07-10 17:51 → TELE-WESTW 07-15 19:25
PROVIDERS: ADMIT Nurse Practitioner; ATTEND Internal Medicine Pulmonary Disease
PROC: 4A023N7 Measurement of Cardiac Sampling and Pressure, Left Heart, Percutaneous Approach (ICD-10-PCS; 2023-06-18)
PROC: 5A12012 Performance of Cardiac Output, Single, Manual (ICD-10-PCS; 2023-06-18)
PROC: 4A033BC Measurement of Arterial Pressure, Coronary, Percutaneous Approach (ICD-10-PCS; 2023-06-18)
PROC: B2111ZZ Fluoroscopy of Multiple Coronary Arteries using Low Osmolar Contrast (ICD-10-PCS; 2023-06-18)
PROC: B2151ZZ Fluoroscopy of Left Heart using Low Osmolar Contrast (ICD-10-PCS; 2023-06-18)
PROC: B41G1ZZ Fluoroscopy of Left Lower Extremity Arteries using Low Osmolar Contrast (ICD-10-PCS; 2023-06-18)
PROC: 0BH17EZ Insertion of Endotracheal Airway into Trachea, Via Natural or Artificial Opening (ICD-10-PCS; 2023-06-18)
PROC: 5A1955Z Respiratory Ventilation, Greater than 96 Consecutive Hours (ICD-10-PCS; 2023-06-18)
PROC: 0D9670Z Drainage of Stomach with Drainage Device, Via Natural or Artificial Opening (ICD-10-PCS; 2023-06-18)
PROC: 3E0G76Z Introduction of Nutritional Substance into Upper GI, Via Natural or Artificial Opening (ICD-10-PCS; 2023-06-18)
PROC: 02HV33Z Insertion of Infusion Device into Superior Vena Cava, Percutaneous Approach (ICD-10-PCS; 2023-06-26)
PROC: 0BH17EZ Insertion of Endotracheal Airway into Trachea, Via Natural or Artificial Opening (ICD-10-PCS; 2023-06-28)
PROC: 5A1955Z Respiratory Ventilation, Greater than 96 Consecutive Hours (ICD-10-PCS; 2023-06-28)
PROC: 30233N1 Transfusion of Nonautologous Red Blood Cells into Peripheral Vein, Percutaneous Approach (ICD-10-PCS; 2023-06-30)
PROC: 02HK3KZ Insertion of Defibrillator Lead into Right Ventricle, Percutaneous Approach (ICD-10-PCS; principal; 2023-07-03)
PROC: 0JH608Z Insertion of Defibrillator Generator into Chest Subcutaneous Tissue and Fascia, Open Approach (ICD-10-PCS; 2023-07-03)
PROC: B517YZZ Fluoroscopy of Left Subclavian Vein using Other Contrast (ICD-10-PCS; 2023-07-03)
PROC: 05HA33Z Insertion of Infusion Device into Left Brachial Vein, Percutaneous Approach (ICD-10-PCS; 2023-07-09)
PROC: B54MZZA Ultrasonography of Right Upper Extremity Veins, Guidance (ICD-10-PCS; 2023-07-09)
DX: I49.01 Ventricular fibrillation (principal); K72.00 Acute and subacute hepatic failure without coma; J96.01 Acute respiratory failure with hypoxia; G93.41 Metabolic encephalopathy; I50.23 Acute on chronic systolic (congestive) heart failure; E87.4 Mixed disorder of acid-base balance; B37.0 Candidal stomatitis; T81.49XA Infection following a procedure, other surgical site, initial encounter; T80.219A Unspecified infection due to central venous catheter, initial encounter; I21.A1 Myocardial infarction type 2; N17.9 Acute kidney failure, unspecified; G93.1 Anoxic brain damage, not elsewhere classified; M62.82 Rhabdomyolysis; I47.10 Supraventricular tachycardia, unspecified; I42.0 Dilated cardiomyopathy; I46.9 Cardiac arrest, cause unspecified; E05.90 Thyrotoxicosis, unspecified without thyrotoxic crisis or storm; E66.9 Obesity, unspecified; E03.9 Hypothyroidism, unspecified; E78.5 Hyperlipidemia, unspecified; I11.0 Hypertensive heart disease with heart failure; R74.01 Elevation of levels of liver transaminase levels; E11.65 Type 2 diabetes mellitus with hyperglycemia; Z20.822 Contact with and (suspected) exposure to COVID-19; E87.6 Hypokalemia; K59.00 Constipation, unspecified; I49.3 Ventricular premature depolarization; R13.10 Dysphagia, unspecified; Z86.73 Personal history of transient ischemic attack (TIA), and cerebral infarction without residual deficits; Z95.5 Presence of coronary angioplasty implant and graft; Z83.3 Family history of diabetes mellitus; Z82.49 Family history of ischemic heart disease and other diseases of the circulatory system; Z79.02 Long term (current) use of antithrombotics/antiplatelets; Z79.899 Other long term (current) drug therapy; Z93.1 Gastrostomy status; Z68.26 Body mass index [BMI] 26.0-26.9, adult
CPT/HCPCS: 31500; 33249; 36415; 36569; 36600; 70450; 70551; 71045; 76705; 76937; 80048; 80053; 80061; 80202; 80307; 80320; 81001; 82140; 82270; 82550; 82805; 82962; 83036; 83605; 83735; 83880; 84100; 84132; 84443; 84484; 84702; 85007; 85014; 85018; 85025; 85027; 85610; 85652; 85730; 86141; 86664; 86703; 86706; 86803; 86850; 86900; 86901; 86920; 87040; 87070; 87077; 87081; 87086; 87088; 87186; 87205; 87340; 87426; 87804; 92610; 93005; 93306; 93458; 93970; 93971; 94002; 94003; 94640; 95819; 96365; 96368; 96372; 97110; 97116; 97163; 97530; 99152; 99291; A4618; C1894; C9113; G0378; J0171; J0696; J2185; J2250; J2405; J2543; J2704; J3480; J7042; J7060; Q9956; Q9967

== ENCOUNTER 2025-06-21 04:28 | Emergency (ER) | payer MEDICAID ==
[~2025-06-21] VITALS: Ht 172.7 cm; Wt 75.8 kg
[~2025-06-21 04:28] MED LIST: AMIO200T33 PO; DOXY100C79 PO; EMPA1TAB PO; FURO20TA4 PO; LISI-275 PO; MET25T PO; SPIR25TA PO
--- NOTE | 2025-06-21 04:39 | ED.PDOC ---
Eye-HPI HPI Comments 59-year-old female presents to the ED chief complaint sore throat. Patient states she was seen at the dentist on Saturday had dental work done for denture replacement. Was prescribed amoxicillin ibuprofen. She comes in tonight complaining of sore throat and right upper jaw pain. She reports a bone sticking out of her right upper gum she is unsure if it was there after the surgery. Denies difficulty breathing, shortness of breath, chest pain, fever, chills, nausea or vomiting. Time Seen by MD: 04:29 Reviewed Notes: Nurses Notes, Medications, Allergies Allergies: Coded Allergies: NO KNOWN ALLERGIES (Unverified , 06/18/23) Home Meds Active Scripts Doxycycline (Monohydrate) (Doxycycline) 100 Mg Cap, 100 MG PO BID for 7 Days, #14 CAP Prov:GLORIA MANCUSO MD 07/17/23 Amiodarone Hcl (Amiodarone Hcl) 200 Mg Tab, 1 TAB PO BID for 30 Days, #60 TAB 1 Refill Prov:GLORIA MANCUSO MD 07/17/23 Spironolactone (Aldactone) 25 Mg Tab, 12.5 MG PO DAILY for 30 Days, #30 TAB Prov:GLORIA MANCUSO MD 07/17/23 Metoprolol Tartrate (Lopressor) 25 Mg Tb, 25 MG PO BID for 30 Days, #60 TAB Prov:GLORIA MANCUSO MD 07/17/23 Lisinopril (Lisinopril) 5 Mg Tab, 2.5 MG PO DAILY for 30 Days, #30 TAB Prov:GLORIA MANCUSO MD 07/17/23 Furosemide (Furosemide) 20 Mg Tab, 20 MG PO DAILY for 30 Days, #30 TAB Prov:GLORIA MANCUSO MD 07/17/23 Empagliflozin (Jardiance) 10 Mg Tab, 10 MG PO QAM for 30 Days, #60 TAB Prov:GLORIA MANCUSO MD 07/17/23 Information Source: Patient Past Medical History PAST MEDICAL HISTORY: Unobtainable Surgical History: Unobtainable [employer] History: Unobtainable Family History Family History: Unobtainable Social History Smoker: Unobtainable Alcohol: Unobtainable Drugs: Unobtainable Lives In: Home All Other Systems: Reviewed and Negative (see hpi) Physical Exam General Appearance: No Apparent Distress, Normal HEENT: Pharyngeal Erythema, Other (Noted trace edema right upper jaw. Noted dental bone protruding back right upper molar no noted drainage or bleeding) Neck: Full Range of Motion, Non-Tender Respiratory: Lungs Clear, No Respiratory Distress, Normal Breath Sounds Cardiovascular: No Murmur, Normal Peripheral Pulses, Regular Rate/Rhythm Breast Exam: Deferred Gastrointestinal: Non Tender, Soft Genitalia: Deferred Pelvic: Deferred Rectal: Deferred Extremities: Normal range of motion, Non-tender Musculoskeletal : Apperance: Normal Neurologic: Alert, No Motor Deficits, Normal Affect, Normal Mood, No Sensory Deficits Cerebellar Function: Normal Reflexes: NOT DONE Skin: Dry, Normal Color, Warm Lymphatic: No Adenopathy Was a procedure done? Was a procedure done?: No EENT DIFF Eye: N/A Ear: Dental, Pharyngitis Sore Throat: Streptococcal, URI X-Ray, Labs, Meds, VS Comment Patient treated with Rocephin 1 g IM, [place] 5 mg p.o., Toradol 60 mg IM and Hurricaine spray. Script trial of clinda in home advised take medication as prescribed side effects discussed. Advised to follow up with make an appointment with dental for resolution. ER return precautions given patient indicates understanding and agrees with discharge plan of care. Patient states she will follow up with her dentist this morning. Advised to follow up within 24 hours for re-evaluation. Time of 1ST Reevaluation: 04:38 Reevaluation 1ST: Unchanged Time of 2ND Reevaluation: 04:44 Reevaluation 2ND: Improved Patient Education/Counseling: Diagnosis, Treatment, Need For Follow Up Family Education/Counseling: Diagnosis, Treatment SEPSIS Sepsis Screen Physician Orders Ceftriaxone Sodium (Rocephin) (06/21/25 04:45) Ketorolac Injection (Toradol Injection) (06/21/25 04:45) Hydrocodone-Acet 5/325mg Tab ([place] 5/32 (06/21/25 04:45) Departure 1 Departure Time of Disposition: 04:43 Impression: Primary Impression: Dental infection Disposition: 01 HOME / SELF CARE / HOMELESS Condition: Stable e-Prescriptions Clindamycin Hcl (Clindamycin Hcl) 300 Mg Cap 300 MG PO QID for 7 Days, #28 CAP Prov: ORTEGA CARLISLE 06/21/25 Discharged With: Relative Critical Care Note Critical Care Time?: No Stability Stability form required: ORTEGA Paul Jun 21, 2025 04:39
[2025-06-21 04:43] VITALS: TEMP 98.4
[2025-06-21] MEDS ORDERED: CLIN1CAP70 PO (04:45)
[2025-06-21 05:04] VITALS: BP 111/56; PULSE 66; RESP 20; O2SAT 96
[2025-06-21] MEDS: HYDROcodone-ACET 5/325MG TAB PO ONE (05:23)
[2025-06-21] MEDS: KETOROLAC TROMETH 60MG/2ML VIAL IM ONE (05:24)
[2025-06-21] MEDS: cefTRIAXone SOD 1,000 MG VL IM ONE (05:24)
== END 2025-06-21 05:39 | disposition home or self-care (01) ==
LOC: ER 04:28
DX: K04.7 Periapical abscess without sinus (principal); F17.200 Nicotine dependence, unspecified, uncomplicated; Z79.899 Other long term (current) drug therapy
CPT/HCPCS: 96372; 99284; J0696; J1885